=== PATIENT | female | born 1980 | race Caucasian/White ===

== ENCOUNTER 2019-04-05 16:35 | Emergency (ER) | payer OTHER ==
[2019-04-05 16:46] VITALS: TEMP 98.8; BMI 19.6
--- NOTE | 2019-04-05 17:17 | PDOC ---
*Physical Exam - Vital Signs Last Vital Signs Temp Pulse Resp BP Pulse Ox 98.8 F 118 H 18 121/70 96 04/05/19 16:45 04/05/19 16:45 04/05/19 16:45 04/05/19 16:45 04/05/19 16:45 ED Treatment Course - LABORATORY CBC & Chemistry Diagram: 04/05/19 17:56 04/05/19 17:56 Medical Decision Making - Medical Decision Making 04/05/19 17:16 Patient seen and evaluated with Dr. Ruelas 38 y/o female with seizure disorder presents with alcohol intoxication. Patient states she was at home when she decided to come to the hospital States she drinks 3 pints of vodka daily. Denies any fall, head trauma/LOC. Amenable to detox. 10 point ROS is negative including no chest pain/shortness of breath/abdominal pain/nausea/vomiting/diarrhea/constipation/dysuria/hematuria/numbness/tingling As per EMR patient left AMA from [facility] on 04/01/2017. Plan to observe until clinically sober + symptomatic treatment with IV hydration ,and d/c to [facility] pending bed availability. 04/05/19 17:51 Female alcohol detox bed available at [facility] Will obtain baseline labs, EKG, CXR, Urine Tox for [facility] admission *DC/Admit/Observation/Transfer Diagnosis at time of Disposition: Alcohol intoxication Qualifiers: Complication of substance-induced condition: uncomplicated Qualified Code(s): F10.920 - Alcohol use, unspecified with intoxication, uncomplicated - Referrals - Patient Instructions - Post Discharge Activity
[2019-04-05] MEDS ORDERED: FOLIC ACID INJECTION - 1 MG, THIAMINE HCL 100 MG, MULTIVIT INJECTION ADULT 10 ML in SOD... IVPB ONE (17:29)
--- NOTE | 2019-04-05 17:34 | PDOC ---
History of Present Illness - General Chief Complaint: Alcohol intoxication Stated Complaint: SUBSTANCE ABUSE Time Seen by Provider: 04/05/19 16:48 History Source: Patient Exam Limitations: No Limitations - History of Present Illness Initial Comments: 04/05/19 17:25 38 yo F pmh etoh withdrawal (DT, seizures) BIBEMS for alcohol intoxication. Pt called EMS after binge drinking for the weekend. Pt is a poor historian but believes she has had about 20 drinks. Last drink at 3pm. Pt states she normally drinks the same amount per day. Denies concominant drug use (e.g. barbituates, benzos). Denies head strike, LOC, f/c/n/v, chest pain, sob. Chart review shows the patient recently had an MRI (indication seizures) and was seen for etoh detox but signed out. PMH: as above Meds: see chart No significant surgical hx Amoxicillin allergy Does not smoke. Past History - Past Medical History Allergies/Adverse Reactions: Allergies Allergy/AdvReac Type Severity Reaction Status Date / Time amoxicillin Allergy Severe Verified 04/05/19 20:19 Home Medications: Ambulatory Orders Bupropion HCl [Bupropion Xl] 450 mg PO DAILY 04/01/19 Venlafaxine HCl ER [Effexor Xr -] 75 mg PO DAILY 04/01/19 COPD: No Other medical history: chr alcoholic - Suicide/Smoking/Psychosocial Hx Smoking History: Never smoked Hx Alcohol Use: Yes Drug/Substance Use Hx: No Review of Systems - Review of Systems Able to Perform ROS?: Yes Is the patient limited Monegasque proficient: No Constitutional: No: Chills, Fever HEENTM: No: Symptoms Reported, See HPI, Eye Pain, Blurred Vision, Tearing, Recent change in vision, Double Vision, Cataracts, Ear Pain, Ocular Prothesis, Ear Discharge, Nose Pain, Nose Congestion, Tinnitus, Nose Bleeding, Hearing Loss , Throat Pain, Throat Swelling, Mouth Pain, Dental Problems, Difficulty Swallowing, Mouth Swelling, Other Respiratory: No: Symptoms reported, See HPI, Cough, Orthopnea, Shortness of Breath, SOB with Exertion, SOB at Rest, Stridor, Wheezing, Productive cough, Hemoptysis, Other Cardiac (ROS): No: Symptoms Reported, See HPI, Chest Pain, Edema, Irregular Heart Rate, Lightheadedness, Palpitations, Syncope, Chest Tightness, Other ABD/GI: No: Symptoms Reported, See HPI, Abdominal Distended, Abd. Pain w/ defecation, Blood Streaked Bowels, Constipated, Diarrhea, Difficulty Swallowing , Nausea, Poor Appetite, Poor Fluid Intake, Rectal Bleeding, Vomiting, Indigestion, Abdominal cramping, Tarry Stools, Other : No: Symptoms Reported, See HPI, Burning, Dysuria, Discharge, Frequency, Flank Pain, Hematuria, Incontinence, Pain, Urgency, Testicular Mass, Testicular Swelling, Lesions, Testicular Pain, Other Neurological: No: Numbness, Paresthesia, Tingling, Weakness *Physical Exam - Vital Signs Last Vital Signs Temp Pulse Resp BP Pulse Ox 98.8 F 118 H 18 121/70 96 04/05/19 16:45 04/05/19 16:45 04/05/19 16:45 04/05/19 16:45 04/05/19 16:45 - Physical Exam Comments: 04/05/19 18:06 GEN: Resting comfortable in bed, NAD. Warm. HEENT: NC/AT, EOMI, PERRLA. Moist mucus membranes. CN II-XII intact. No obvious deformities, scalp hematomas, palpable fractures, or bruises. Normal voice. NEURO: Alert and oriented x3. Sensation grossly intact. 5/5 strength of UE and LE b/l. Normal gait, ambulates well. CV: S1/S2, RRR, no m/r/g LUNG: CTAB, no wheezes, crackles, rales, rhonchi. GI: soft, ndnt, +BS EXTREMITIES: There is a 10cm x 5 cm bruise on the lateral aspect of the left thigh. No obvious deformities of all extremities. ED Treatment Course - LABORATORY CBC & Chemistry Diagram: 04/05/19 17:56 04/05/19 17:56 Medical Decision Making - Medical Decision Making 04/05/19 17:37 38 yo F pmh alcohol withdrawal (seizures, DTs) BIBEMS for alcohol intoxication. Last drink was 2 hours before presentation. Patient is completely alert and oriented, neurologically intact. She denies head trauma and there are no signs of head trauma. There are no airway or breathing issues. Patient signed out of etoh detox recently but is amenable to re-admission. Acute alcohol intoxication - CBC, CMP, test - IV, banana bag - Urine tox - monitor - [facility] has a bed for patient; call before discharge. If no bed anymore, need to find new detox facility ([place]?) dispo: [facility] *DC/Admit/Observation/Transfer Diagnosis at time of Disposition: Alcohol intoxication Qualifiers: Complication of substance-induced condition: uncomplicated Qualified Code(s): F10.920 - Alcohol use, unspecified with intoxication, uncomplicated - Discharge Dispostion Disposition: TRANSFER ACUTE CARE/OTHER HOSP Condition at time of disposition: Good Decision to Admit order: No - Referrals - Patient Instructions Printed Discharge Instructions: DI for Alcohol Abuse Additional Instructions: You were assessed and treated in the Emergency Department. Please follow up with your Primary Care Physician and Detox specialist. Please return to the Emergency Department if you experience any of the following : - chest pain - shortness of breath and/or difficulty breathing - seizures, fainting, loss of consciousness, change in behavior, and/or change in mentation - severe headache - any signs or symptoms that concern you - Post Discharge Activity
[2019-04-05 18:12] LABS: BASO % 1.8 % (0-2.0); HEMATOCRIT 36.8 % (32.4-45.2); LYMPH % 47.5 % (8-40); MCHC 32.7 g/dl (32.0-36.0); MEAN CELL VOLUME 88.6 fl (80-96); MEAN PLT VOLUME 7.9 fl (7.5-11.1); MONO % 6.5 % (3.8-10.2); NEUT % 42.2 % (42.8-82.8); PLATELET COUNT 479 K/MM3 (134-434); RBC 4.15 M/mm3 (3.60-5.2); RDW 14.8 % (11.6-15.6); WHITE BLOOD COUNT 5.1 K/mm3 (4.0-10.0)
--- NOTE | 2019-04-05 18:17 | PDOC ---
Documentation entered by Corby Otto SCRIBE, acting as scribe for Aicha Mcgowan MD. Aicha Mcgowan MD: This documentation has been prepared by the Clarita gongora Nirvannie, SCRIBE, under my direction and personally reviewed by me in its entirety. I confirm that the documentation accurately reflects all work, treatment, procedures, and medical decision making performed by me. Attending Attestation - Resident Resident Name: Amado Ruelas - ED Attending Attestation I have performed the following: I have examined & evaluated the patient, The case was reviewed & discussed with the resident, I agree w/resident's findings & plan - HPI HPI: 04/05/19 17:57 The patient is a 38 year old female, with a significant past medical history of alcohol abuse (withdrawal seizures), who presents to the emergency department with, alcohol intoxication. Patient believes she had approximately 20 drinks this weekend (last drink 3pm). She denies recent chest pain or shortness of breath. Allergies: Amoxicillin. 04/05/19 18:15 cant remember last time she was sober, denies other drug use. states things are safe at home denies trauma. denies thoughts of self harm. - Physicial Exam PE: 04/05/19 18:15 awake alert lungs clear bilat heart rrr no mrg abd soft nt nd ext wwp. nuero alert oriented x 3. moves all four ext. speech clear. - Medical Decision Making 04/05/19 18:16 38 yo F with h/o etoh abuse last etoh today at 3 pm. pt willing to go to [facility] for detox. plan to transfer to [facility]. basic labs. po hydration CIWA precautions. 04/05/19 19:14 pt ekg normal. would like to go to [facility]. clinically sober at this point . called [facility] to discuss transfer. Heart Score/ECG Review #1 General ECG Interpretation: Sinus Rhythm, Normal Rate (108), Normal Intervals, No acute ischemic changes
[2019-04-05 18:52] LABS: ALBUMIN 3.9 g/dl (3.4-5.0); BILIRUBIN,TOTAL 0.3 mg/dL (0.2-1); CALCIUM 8.8 mg/dL (8.5-10.1); CREATININE 0.8 mg/dL (0.55-1.3); TOT PROT 7.7 g/dl (6.4-8.2)
[2019-04-05 19:22] VITALS: BP 144/70; PULSE 116
--- NOTE | 2019-04-06 09:25 | EKG ---
Test Reason : Blood Pressure : / mmHG Vent. Rate : 108 BPM Atrial Rate : 108 BPM P-R Int : 144 ms QRS Dur : 076 ms QT Int : 312 ms P-R-T Axes : 067 074 066 degrees QTc Int : 418 ms SINUS TACHYCARDIA CANNOT RULE OUT ANTERIOR INFARCT , AGE UNDETERMINED ABNORMAL ECG NO PREVIOUS ECGS AVAILABLE Confirmed by WOODY SHELBY MD ([id number]) on 04/06/2019 9:24:57 AM Referred By: Confirmed By:WOODY SHELBY MD
== END 2019-04-05 19:30 | disposition short-term general hospital (02) ==
LOC: JER 16:35
PROC: 3E033GC Introduction of Other Therapeutic Substance into Peripheral Vein, Percutaneous Approach (ICD-10-PCS; principal; 2019-04-05)
DX: F10.920 Alcohol use, unspecified with intoxication, uncomplicated (principal)
CPT/HCPCS: 36415; 71045-TC-FY; 80053; 84703; 85025; 93005; 93010; 96365; 99283-25; J7030

== ENCOUNTER 2019-04-05 20:07 | Inpatient (IN) | payer OTHER ==
[2019-04-05 20:25] VITALS: BMI 20.3
--- NOTE | 2019-04-05 21:34 | HP ---
CIWA Score Nausea/Vomitin-Mild Nausea/No Vomiting Muscle Tremors: 4-Moderate,w/Arms Extend Anxiety: 3 Agitation: 4-Moderately Restless Paroxysmal Sweats: 2 Orientation: 0-Oriented Tacttile Disturbances: 0-None Auditory Disturbances: 0-None Visual Disturbances: 0-None Headache: 2-Mild CIWA-Ar Total Score: 16 - Admission Criteria [facility]ASAS Guidelines: Admission for Medically Managed Detox: Requires at least one of the followin. CIWA greater than 12 2. Seizures within the past 24 hours 3. Delirium tremens within the past 24 hours 4. Hallucinations within the past 24 hours 5. Acute intervention needed for co occurring medical disorder 6. Acute intervention needed for co occurring psychiatric disorder 7. Severe withdrawal that cannot be handled at a lower level of care (continued vomiting, continued diarrhea, abnormal vital signs) requiring intravenous medication and/or fluids 8. Admission ROS [facility] Chief Complaint: Alcohol withdrawal symptoms Allergies/Adverse Reactions: Allergies Allergy/AdvReac Type Severity Reaction Status Date / Time amoxicillin Allergy Severe Verified 04/05/19 20:19 History of Present Illness: 33 years old female with a long history of alcohol dependence is seeking admission to detox. Patient has been in previous detox at [facility] and reports 7 years of sobriety. She has history of seizure and depression. She denies suicide attempt / suicidal ideation at this time. this her first admission to [facility] detox. Exam Limitations: No Limitations - Ebola screening Have you traveled outside of the country in the last 21 days: No (N) Have you had contact with anyone from an Ebola affected area: No Do you have a fever: No - Review of Systems Constitutional: Chills, Malaise EENT: reports: Nose Congestion Respiratory: reports: No Symptoms reported Cardiac: reports: No Symptoms Reported GI: reports: Poor Appetite, Poor Fluid Intake, Abdominal cramping : reports: No Symptoms Reported Musculoskeletal: reports: Back Pain Integumentary: reports: Dryness, Flushing Neuro: reports: Headache, Tremors Endocrine: reports: No Symptoms Reported Hematology: reports: No Symptoms Reported Psychiatric: reports: Mood/Affect Appropiate, Orientated x3, Anxious, Depressed Other Systems: Reviewed and Negative Patient History - Patient Medical History Hx Anemia: No Hx Asthma: No Hx Chronic Obstructive Pulmonary Disease (COPD): No Hx Cancer: No Hx Cardiac Disorders: No Hx Congestive Heart Failure: No Hx Hypertension: No Hx Hypercholesterolemia: No Hx Pacemaker: No HX Cerebrovascular Accident: No Hx Seizures: Yes (Not on medication) Hx Dementia: No Hx Diabetes: No Hx Gastrointestinal Disorders: No Hx Liver Disease: No Hx Genitourinary Disorders: No Hx Sexually Transmitted Disorders: No Hx Renal Disease (ESRD): No Hx Thyroid Disease: No Hx Human Immunodeficiency Virus (HIV): No (Neggative 2019) Hx Hepatitis C: No Hx Depression: Yes (Effexor, Bupriopion) Hx Suicide Attempt: No (Denies suicide attempt/ [id number] ideation at this time) Hx Bipolar Disorder: No Hx Schizophrenia: No - Patient Surgical History Past Surgical History: No - PPD History Previous Implant?: Yes Documented Results: Negative w/o proof Implanted On Prior [facility] Admission?: No PPD to be Administered?: Yes - Reproductive History Patient is a Female of Child Bearing Age (11 -55 yrs old): Yes Last Menstrual Period: 03/17/19 Patient : No - Smoking Cessation Smoking history: Never smoked Have you smoked in the past 12 months: No Hx Chewing Tobacco Use: No Initiated information on smoking cessation: No - Substance & Tx. History Hx Alcohol Use: Yes Hx Substance Use: No Substance Use Type: Alcohol Hx Substance Use Treatment: No - Substances abused Alcohol Substance route: Oral Frequency: Daily Amount used: 1 pint Age of first use: 14 Date of last use: 04/01/19 Family Disease History - Family Disease History Family Disease History: Other: Mother (Alcoholic) Admission Physical Exam [facility] - Vital Signs Vital Signs: Vital Signs - 24 hr 04/05/19 20:19 Temperature 98.6 F Pulse Rate 117 H Respiratory 20 Rate Blood Pressure 128/87 - Physical General Appearance: Yes: Moderate Distress, Anxious HEENTM: Yes: Within Normal Limits, Normal ENT Inspection, Normal Voice Respiratory: Yes: Normal Breath Sounds Neck: Yes: Supple Breast: Yes: Breast Exam Deferred Cardiology: Yes: Regular Rhythm, Regular Rate Abdominal: Yes: Normal Bowel Sounds Genitourinary: Yes: Within Normal Limits Back: Yes: Normal Inspection Musculoskeletal: Yes: Within Normal Limits Extremities: Yes: Normal Inspection Neurological: Yes: chain maker machine II-XII NML intact Integumentary: Yes: Warm Lymphatic: Yes: Within Normal Limits - Diagnostic (1) Alcohol dependence with uncomplicated withdrawal Current Visit: Yes Status: Acute (2) Depression Current Visit: Yes Status: Acute Qualifiers: Depression Type: unspecified Qualified Code(s): F32.9 - Major depressive disorder, single episode, unspecified Cleared for Admission [facility] - Detox or Rehab [facility] Level of Care: Medically Managed Detox Regimen/Protocol: Librium Breathalyzer - Breathalyzer Breathalyzer: 0.105 Urine Drug Screen - Test Device Lot number: [id number] Expiration date: 01/13/21 - Control Is test valid?: Yes - Results Drug screen NEGATIVE: No Urine drug screen results: BZO-Benzodiazepines Inpatient Rehab Admission - Rehab Decision to Admit Inpatient rehab admission?: No
[2019-04-05] MEDS ORDERED: MAG HYDROX/AL HYDROX/SIMETH 30 ML UNIT-DOSE CUP PO PRN (21:43)
[2019-04-05] MEDS ORDERED: IBUPROFEN 400 MG TABLET (FP) PO PRN (21:43)
[2019-04-05] MEDS ORDERED: hydrOXYzine PAMOATE 25 MG CAPSULE (FP) PO PRN (21:43)
[2019-04-05] MEDS ORDERED: ACETAMINOPHEN 325 MG TABLET (FP) PO PRN ×2 (21:43)
[2019-04-05] MEDS ORDERED: MENTHOL/PHENOL 1 EACH UD MM PRN (21:43)
[2019-04-05] MEDS ORDERED: MAGNESIUM CITRATE 300 ML BOTTLE PO PRN (21:43)
[2019-04-05] MEDS ORDERED: BISMUTH SUBSALICYLATE 524 MG/30 ML UD PO PRN (21:43)
[2019-04-05] MEDS ORDERED: MELATONIN 5 MG TABLETS PO PRN (21:43)
[2019-04-05] MEDS ORDERED: MAGNESIUM HYDROX 2400MG/30ML ORAL SUSPENSION 30 ML CUP PO PRN (21:43)
[2019-04-05] MEDS: THIAMINE HCL 100 MG TABLET (FP) PO SCH (23:24)
[2019-04-05] MEDS: chlordiazePOXIDE HCL 25 MG CAPSULE PO SCH (23:24)
[2019-04-06] MEDS: chlordiazePOXIDE HCL 25 MG CAPSULE PO PRN ×3 (01:23→19:41)
[2019-04-06] MEDS: chlordiazePOXIDE HCL 25 MG CAPSULE PO SCH ×4 (05:38→22:24)
--- NOTE | 2019-04-06 09:25 | EKG ---
Test Reason : Blood Pressure : / mmHG Vent. Rate : 097 BPM Atrial Rate : 097 BPM P-R Int : 142 ms QRS Dur : 074 ms QT Int : 322 ms P-R-T Axes : 069 073 071 degrees QTc Int : 408 ms NORMAL SINUS RHYTHM NORMAL ECG NO PREVIOUS ECGS AVAILABLE Confirmed by WOODY SHELBY MD ([id number]) on 04/06/2019 9:25:22 AM Referred By: TAMMY LEONG Confirmed By:WOODY SHELBY MD
[2019-04-06] MEDS: PRENATAL VITAMINS W/ FOLIC ACID TABLET (FP) PO SCH (10:17)
--- NOTE | 2019-04-06 10:49 | CONSULT ---
[facility] Psychiatric Consult - Data Date of interview: 04/06/19 Admission source: [facility] ED Identifying data: MS Donald is a 38 years old single female, unemployed with no source of income, homeless seeking detox treatment for alcohol Substance Abuse History: Reports history of alcohol use. [facility]er to [facility] counselor's summary for further information Medical History: Significant for history one seizure episode. Patient claims that it was due to dehydration Psychiatric History: Reports that her first psychiatric contact was 10 years ago when she saw a private psychatrist in [place] who started her on Prozac for depression. Reports that she has been the psychiatrist regularly. She is currently precribed Wellbutrin XL 450 mg/day and Effexor XR 75 mg/day. Told copywriter that she last took medications a week ago. Denies previous psychiatric hospitalization or suicidal attempt. At present, reports feeling depressed, anxious and sleeping poorly Physical/Sexual Abuse/Trauma History: Denies history of emotional, physical or sexual abuse as well as DV relationship Additional Comment: Reports history of one previous arrest on charges of DWI Mental Status Exam - Mental Status Exam Alert and Oriented to: Time, Place, Person Cognitive Function: Fair Patient Appearance: Well Groomed Mood: Depressed, Anxious Patient Behavior: Cooperative Speech Pattern: Clear Voice Loudness: Normal Thought Process: Intact, Goal Oriented Thought Disorder: Not Present Hallucinations: Denies Suicidal Ideation: Denies Homicidal Ideation: Denies Insight/Judgement: Poor Sleep: Poorly Appetite: Fair Muscle strength/Tone: Normal Gait/Station: Normal Psychiatric Findings - Problem List ([place] 1, 2,3) (1) MDD (major depressive disorder) Current Visit: Yes Status: Chronic (2) Alcohol-induced mood disorder Current Visit: Yes Status: Acute (3) Alcohol-induced sleep disorder Current Visit: Yes Status: Acute (4) Alcohol dependence with uncomplicated withdrawal Current Visit: Yes Status: Acute (5) History of seizure Current Visit: Yes Status: Resolved - Initial Treatment Plan Initial Treatment Plan: 1) Resume Wellbutrin XL 450 mg po daily and Effexor XR 75 mg po daily. 2) Patient educated about relationship between medication especially Wellbutrin and Seizure and he was invited to initiate a conversation with her health care provider about that. 3)Continue inpatient detoxification
--- NOTE | 2019-04-06 11:22 | PN ---
S CIWA - CIWA Score Nausea/Vomitin-No Nausea/No Vomiting Muscle Tremors: 3 Anxiety: 3 Agitation: 3 Paroxysmal Sweats: 3 Orientation: 0-Oriented Tacttile Disturbances: 0-None Auditory Disturbances: 0-None Visual Disturbances: 0-None Headache: 0-None Present CIWA-Ar Total Score: 12 BHS Progress Note (SOAP) Subjective: sweats shakes interrupted sleep body aches anxiety Objective: 04/06/19 11:20 Vital Signs Temperature 98.2 F 04/06/19 09:26 Pulse Rate 107 H 04/06/19 11:00 Respiratory Rate 16 04/06/19 09:26 Blood Pressure 102/58 L 04/06/19 09:26 O2 Sat by Pulse Oximetry (%) Laboratory Tests 04/05/19 20:49 POC Urine HCG, Qual Negative labs pending aaox3 ambulating no acute distress Assessment: 04/06/19 11:20 withdrawal sx Plan: continue with detox increase fluids pending labs
[2019-04-06] MEDS: VENLAFAXINE HCL 75 MG E.R. CAPSULES (FP) PO SCH (11:43)
[2019-04-06 12:04] LABS: HEMATOCRIT 34.9 % (32.4-45.2); HEMOGLOBIN 11.3 GM/dL (10.7-15.3); MCH 29.3 pg (25.7-33.7); MCHC 32.5 g/dl (32.0-36.0); MEAN CELL VOLUME 89.9 fl (80-96); MEAN PLT VOLUME 8.5 fl (7.5-11.1); PLATELET COUNT 377 K/MM3 (134-434); RBC 3.88 M/mm3 (3.60-5.2); RDW 14.4 % (11.6-15.6); WHITE BLOOD COUNT 7.4 K/mm3 (4.0-10.0)
[2019-04-06 12:10] LABS: ALBUMIN 3.3 g/dl (3.4-5.0); BILIRUBIN,TOTAL 0.3 mg/dL (0.2-1); BLOOD UREA NITROGEN 14.5 mg/dL (7-18); CALCIUM 8.4 mg/dL (8.5-10.1); CREATININE 0.7 mg/dL (0.55-1.3); POTASSIUM 4.1 mmol/L (3.5-5.1); TOT PROT 6.3 g/dl (6.4-8.2)
[2019-04-06] MEDS: METHOCARBAMOL 500 MG TABLET PO PRN (22:24)
[2019-04-06] MEDS: THIAMINE HCL 100 MG TABLET (FP) PO SCH (22:24)
[2019-04-07] MEDS: chlordiazePOXIDE HCL 25 MG CAPSULE PO SCH ×4 (05:55→22:23)
[2019-04-07] MEDS: PRENATAL VITAMINS W/ FOLIC ACID TABLET (FP) PO SCH (10:23)
[2019-04-07] MEDS: VENLAFAXINE HCL 75 MG E.R. CAPSULES (FP) PO SCH (10:23)
--- NOTE | 2019-04-07 11:45 | PN ---
[facility] CIWA - CIWA Score Nausea/Vomitin-No Nausea/No Vomiting Muscle Tremors: 3 Anxiety: 3 Agitation: 3 Paroxysmal Sweats: 2 Orientation: 0-Oriented Tacttile Disturbances: 0-None Auditory Disturbances: 0-None Visual Disturbances: 0-None Headache: 0-None Present CIWA-Ar Total Score: 11 S Progress Note (SOAP) Subjective: sweats anxiety body aches interrupted sleep Objective: 04/07/19 11:44 Vital Signs Temperature 97.7 F 04/07/19 07:21 Pulse Rate 65 04/07/19 07:21 Respiratory Rate 16 04/07/19 07:21 Blood Pressure 106/68 04/07/19 07:21 O2 Sat by Pulse Oximetry (%) Laboratory Tests 04/05/19 04/06/19 04/06/19 20:49 07:00 07:00 WBC 7.4 RBC 3.88 Hgb 11.3 Hct 34.9 MCV 89.9 MCH 29.3 MCHC 32.5 RDW 14.4 Plt Count 377 D MPV 8.5 Sodium 139 Potassium 4.1 Chloride 107 Carbon Dioxide 27 Anion Gap 5 L BUN 14.5 Creatinine 0.7 Est GFR (CKD-EPI)AfAm 128.28 Est GFR (CKD-EPI)NonAf 110.69 Random Glucose 89 Calcium 8.4 L Total Bilirubin 0.3 AST 26 ALT 32 Alkaline Phosphatase 73 Total Protein 6.3 L Albumin 3.3 L POC Urine HCG, Qual Negative RPR Titer 04/06/19 07:00 WBC RBC Hgb Hct MCV MCH MCHC RDW Plt Count MPV Sodium Potassium Chloride Carbon Dioxide Anion Gap BUN Creatinine Est GFR (CKD-EPI)AfAm Est GFR (CKD-EPI)NonAf Random Glucose Calcium Total Bilirubin AST ALT Alkaline Phosphatase Total Protein Albumin POC Urine HCG, Qual RPR Titer Nonreactive aaox3 ambulating no acute distress Assessment: 04/07/19 11:44 withdrawal sx Plan: continue detox increase fluids
[2019-04-07] MEDS: chlordiazePOXIDE HCL 25 MG CAPSULE PO PRN (12:42)
[2019-04-07] MEDS: THIAMINE HCL 100 MG TABLET (FP) PO SCH (22:23)
[2019-04-08] MEDS ORDERED: chlordiazePOXIDE HCL 10 MG CAPSULE PO PRN
[2019-04-08] MEDS: chlordiazePOXIDE HCL 10 MG CAPSULE PO SCH ×4 (05:17→22:39)
[2019-04-08] MEDS: PRENATAL VITAMINS W/ FOLIC ACID TABLET (FP) PO SCH (10:18)
[2019-04-08] MEDS: VENLAFAXINE HCL 75 MG E.R. CAPSULES (FP) PO SCH (10:18)
--- NOTE | 2019-04-08 12:46 | PN ---
[facility] CIWA - CIWA Score Nausea/Vomitin-No Nausea/No Vomiting Muscle Tremors: 2 Anxiety: 2 Agitation: 1-Slight > Activity Paroxysmal Sweats: 2 Orientation: 0-Oriented Tacttile Disturbances: 0-None Auditory Disturbances: 0-None Visual Disturbances: 0-None Headache: 0-None Present CIWA-Ar Total Score: 7 BHS Progress Note (SOAP) Subjective: sweats tired Objective: 04/08/19 12:45 Vital Signs Temperature 97.7 F 04/08/19 09:24 Pulse Rate 80 04/08/19 09:24 Respiratory Rate 18 04/08/19 09:24 Blood Pressure 103/60 04/08/19 09:24 O2 Sat by Pulse Oximetry (%) aaox3 ambulating no acute distress Assessment: 04/08/19 12:46 mild withdrawal sx Plan: continue detox increase fluids
[2019-04-08] MEDS: THIAMINE HCL 100 MG TABLET (FP) PO SCH (22:38)
[2019-04-09] MEDS: chlordiazePOXIDE HCL 10 MG CAPSULE PO SCH ×2 (05:32→17:23)
[2019-04-09] MEDS: PRENATAL VITAMINS W/ FOLIC ACID TABLET (FP) PO SCH (10:10)
[2019-04-09] MEDS: VENLAFAXINE HCL 75 MG E.R. CAPSULES (FP) PO SCH (10:11)
--- NOTE | 2019-04-09 11:23 | PN ---
S CIWA - CIWA Score Nausea/Vomitin-No Nausea/No Vomiting Muscle Tremors: 1-None Visible, but [place] Anxiety: 1-Mildly Anxious Agitation: 1-Slight > Activity Paroxysmal Sweats: No Perspiration Orientation: 0-Oriented Tacttile Disturbances: 0-None Auditory Disturbances: 0-None Visual Disturbances: 0-None Headache: 0-None Present CIWA-Ar Total Score: 3 BHS Progress Note (SOAP) Subjective: little anxiety Objective: 04/09/19 11:22 Vital Signs Temperature 97.9 F 04/09/19 09:35 Pulse Rate 86 04/09/19 09:35 Respiratory Rate 18 04/09/19 09:35 Blood Pressure 114/69 04/09/19 09:35 O2 Sat by Pulse Oximetry (%) aaox3 ambulating no acute distress Assessment: 04/09/19 11:23 mild withdrawal sx Plan: continue detox d/c in am
[2019-04-09] MEDS: THIAMINE HCL 100 MG TABLET (FP) PO SCH (22:14)
[2019-04-10] MEDS ORDERED: chlordiazePOXIDE HCL 10 MG CAPSULE PO ONE (05:00)
--- NOTE | 2019-04-10 09:58 | DS ---
[facility] Detox Discharge Summary Admission Date: 04/05/19 Discharge Date: 04/10/19 - History Present History: Alcohol Dependence - Physical Exam Results Vital Signs: Vital Signs Temperature 97.1 F L 04/10/19 06:22 Pulse Rate 72 04/10/19 06:22 Respiratory Rate 16 04/10/19 06:22 Blood Pressure 101/58 L 04/10/19 06:22 O2 Sat by Pulse Oximetry (%) Pertinent Admission Physical Exam Findings: pt arrived in withdrawals Laboratory Tests 04/05/19 04/06/19 04/06/19 20:49 07:00 07:00 WBC 7.4 RBC 3.88 Hgb 11.3 Hct 34.9 MCV 89.9 MCH 29.3 MCHC 32.5 RDW 14.4 Plt Count 377 D MPV 8.5 Sodium 139 Potassium 4.1 Chloride 107 Carbon Dioxide 27 Anion Gap 5 L BUN 14.5 Creatinine 0.7 Est GFR (CKD-EPI)AfAm 128.28 Est GFR (CKD-EPI)NonAf 110.69 Random Glucose 89 Calcium 8.4 L Total Bilirubin 0.3 AST 26 ALT 32 Alkaline Phosphatase 73 Total Protein 6.3 L Albumin 3.3 L POC Urine HCG, Qual Negative RPR Titer TB (QFT) Incubation TB Test (QFT) Nil TB Test (QFT) Mitogen TB Test (QFT) Antigen TB Test (QFT) TB Positive Criteria 04/06/19 04/06/19 07:00 07:00 WBC RBC Hgb Hct MCV MCH MCHC RDW Plt Count MPV Sodium Potassium Chloride Carbon Dioxide Anion Gap BUN Creatinine Est GFR (CKD-EPI)AfAm Est GFR (CKD-EPI)NonAf Random Glucose Calcium Total Bilirubin AST ALT Alkaline Phosphatase Total Protein Albumin POC Urine HCG, Qual RPR Titer Nonreactive TB (QFT) Incubation TB Test (QFT) Nil 0.02 TB Test (QFT) Mitogen >10.00 TB Test (QFT) Antigen 0.02 TB Test (QFT) Negative TB Positive Criteria today pt is aaox3 ambulating no acute distress no s/s of withdrawals - Treatment Hospital Course: Detox Protocol Followed, Detoxed Safely, Responded well, Discharged Condition Good, Rehab Referral Accepted Patient has Accepted a Rehab Referral to: pt referred to [facility] inpatient rehab - Medication Discharge Medications: Ambulatory Orders Bupropion HCl [Bupropion Xl] 450 mg PO DAILY 04/01/19 Venlafaxine HCl ER [Effexor Xr -] 75 mg PO DAILY 04/01/19 - Diagnosis (1) Alcohol dependence with uncomplicated withdrawal Current Visit: Yes Status: Chronic (2) Alcohol-induced mood disorder Current Visit: Yes Status: Acute (3) Alcohol-induced sleep disorder Current Visit: Yes Status: Acute (4) Depression Current Visit: Yes Status: Acute Qualifiers: Depression Type: unspecified Qualified Code(s): F32.9 - Major depressive disorder, single episode, unspecified (5) MDD (major depressive disorder) Current Visit: Yes Status: Chronic (6) History of seizure Current Visit: Yes Status: Resolved - AMA Did Patient Leave Against Medical Advice: No (referred to [facility] )
[2019-04-10 10:01] VITALS: BP 106/61; PULSE 95; TEMP 96.9
[2019-04-10] MEDS: METHOCARBAMOL 500 MG TABLET PO PRN (10:13)
[2019-04-10] MEDS: PRENATAL VITAMINS W/ FOLIC ACID TABLET (FP) PO SCH (10:13)
[2019-04-10] MEDS: VENLAFAXINE HCL 75 MG E.R. CAPSULES (FP) PO SCH (10:13)
== END 2019-04-10 11:00 | disposition home or self-care (01) | DRG 775 ==
LOC: YASAS 20:07 → Y6N 21:52
PROVIDERS: ADMIT Surgery; ATTEND Surgery
PROC: HZ2ZZZZ Detoxification Services for Substance Abuse Treatment (ICD-10-PCS; principal; 2019-04-05)
DX: F10.230 Alcohol dependence with withdrawal, uncomplicated (principal); F10.24 Alcohol dependence with alcohol-induced mood disorder; F10.282 Alcohol dependence with alcohol-induced sleep disorder; F33.9 Major depressive disorder, recurrent, unspecified; Z86.69 Personal history of other diseases of the nervous system and sense organs
CPT/HCPCS: 36415; 80053; 81025; 85027; 86480; 86593; 93005; 93010

== ENCOUNTER 2019-08-26 12:40 | Inpatient (IN) | payer OTHER ==
--- NOTE | 2019-08-26 13:15 | HP ---
CIWA Score - Admission Criteria OASAS Guidelines: Admission for Medically Managed Detox: Requires at least one of the followin. CIWA greater than 12 2. Seizures within the past 24 hours 3. Delirium tremens within the past 24 hours 4. Hallucinations within the past 24 hours 5. Acute intervention needed for co occurring medical disorder 6. Acute intervention needed for co occurring psychiatric disorder 7. Severe withdrawal that cannot be handled at a lower level of care (continued vomiting, continued diarrhea, abnormal vital signs) requiring intravenous medication and/or fluids 8. Admitting History and Physical - Admission History of Present Illness: Pt is a 39 yo F with PMHx of alcohol use disorder and prior delirium tremens, depression, found outside [facility] after a fall. Pt was found on floor, per pt she said she fell on someone else's vomit on the floor. Pt took 1 pint of vodka at 8am today and was coming in for detox at [facility]. No bleeding from any orifice, pt alert and responsive but with sustained swelling on L frontal area and back area. Pt reports falling yesterday in [facility] residential services in [place], where she sustained a bulge on the L frontal area and the second bulge posteriorly was sustained today. She has headache with pain localized to the front bump 2/10 and back 4/10. No seizures noted, not tongue biting, no fecal or urinary incontinence. As fall was unwitnessed and pt has obvious head trauma, she will be sent to [facility] for CT head. PE: CA- 107 BP-105/68 RR-16 General: Alcohol on breath, awake, initially on floor had to be assisted to stand up, no obvious bleeding from any orifice, no vomit on face or mouth, but vomit on clothes and floor HEENT: Golf ball like swelling L frontal/temporal area, fluctuant, non bleeding , tender, and R posterior swelling golfball size, fluctuant, non bleeding, no obvious bleeding tender,PERRL, nose ring in place, Resp: CTA b/l Cards: S1, S2, tachycardia Abdomen: Soft, non tender [employer]: AAOx 3, Normal strength 5/5 globally, normal tone and reflexes, no tremors Plan: Transfer to [facility] ED for CT head and further eval For detox at [facility] when discharged from [facility] History Source: Patient - Past Medical History ...LMP: 03/17/19 - Smoking History Smoking history: Never smoked Have you smoked in the past 12 months: No - Alcohol/Substance Use Hx Alcohol Use: Yes Admission [facility] Allergies/Adverse Reactions: Allergies Allergy/AdvReac Type Severity Reaction Status Date / Time amoxicillin Allergy Severe Verified 04/05/19 20:19 - Ebola screening Have you traveled outside of the country in the last 21 days: No Have you had contact with anyone from an Ebola affected area: No Patient History - Patient Medical History Hx Anemia: No Hx Asthma: No Hx Chronic Obstructive Pulmonary Disease (COPD): No Hx Cancer: No Hx Cardiac Disorders: No Hx Congestive Heart Failure: No Hx Hypertension: No Hx Hypercholesterolemia: No Hx Pacemaker: No HX Cerebrovascular Accident: No Hx Seizures: Yes (Not on medication) Hx Dementia: No Hx Diabetes: No Hx Gastrointestinal Disorders: No Hx Liver Disease: No Hx Genitourinary Disorders: No Hx Sexually Transmitted Disorders: No Hx Renal Disease (ESRD): No Hx Thyroid Disease: No Hx Human Immunodeficiency Virus (HIV): No (Neggative 2019) Hx Hepatitis C: No Hx Depression: Yes (Effexor, Bupriopion) Hx Suicide Attempt: No (Denies suicide attempt/ [id number] ideation at this time) Hx Bipolar Disorder: No Hx Schizophrenia: No - Patient Surgical History Past Surgical History: No Hx Neurologic Surgery: No Hx Cataract Extraction: No Hx Cardiac Surgery: No Hx Lung Surgery: No Hx Breast Surgery: No Hx Breast Biopsy: No Hx Abdominal Surgery: No Hx Appendectomy: No Hx Cholecystectomy: No Hx Genitourinary Surgery: No Hx Section: No Hx Orthopedic Surgery: No Anesthesia Reaction: No - Reproductive History Last Menstrual Period: 03/17/19 - Smoking Cessation Smoking history: Never smoked Have you smoked in the past 12 months: No Hx Chewing Tobacco Use: No - Substances abused Alcohol Substance route: Oral Frequency: Daily Amount used: 1 pint Age of first use: 14 Date of last use: 04/01/19 Screened but not Admitted - Documentation of Visit Level of Care Recommended at this Time: ER Evaluation/Care (S/p fall for fall protocol 1, requiring Head CT in [facility], pt will be evaluated for detox after d/ c from [facility]) Breathalyzer - Breathalyzer Breathalyzer: 0.105 Urine Drug Screen - Test Device Lot number: [id number] Expiration date: 01/13/21 - Control Is test valid?: Yes - Results Drug screen NEGATIVE: No Urine drug screen results: BZO-Benzodiazepines Inpatient Rehab Admission - Rehab Decision to Admit Inpatient rehab admission?: No
--- NOTE | 2019-08-26 13:52 | FALL ---
Fall Exam - Event Witnessed fall: No Location of Fall: [facility] Fall from: While ambulating - Pre-Fall Mental Status: Alert (Unclear) Current Medications: 08/26/19 13:52 Unknown - Post-Fall Patient Outcome: Abrasion/Bruise (Swelling on L forehead and R occiput) Treatment: Ice Pack LOC Post-Fall: Alert, Oriented Identify factors for HIGH RISK for Head Injury: Known to have hit head
[2019-08-26 17:51] VITALS: BMI 19.5
--- NOTE | 2019-08-26 19:12 | HP ---
CIWA Score Nausea/Vomitin-No Nausea/No Vomiting Muscle Tremors: 4-Moderate,w/Arms Extend Anxiety: 4-Mod. Anxious/Guarded Agitation: 4-Moderately Restless Paroxysmal Sweats: 3 Orientation: 0-Oriented Tacttile Disturbances: 0-None Auditory Disturbances: 0-None Visual Disturbances: 3-Moderate Sensitivity (to light) Headache: 2-Mild CIWA-Ar Total Score: 20 - Admission Criteria OASAS Guidelines: Admission for Medically Managed Detox: Requires at least one of the followin. CIWA greater than 12 2. Seizures within the past 24 hours 3. Delirium tremens within the past 24 hours 4. Hallucinations within the past 24 hours 5. Acute intervention needed for co occurring medical disorder 6. Acute intervention needed for co occurring psychiatric disorder 7. Severe withdrawal that cannot be handled at a lower level of care (continued vomiting, continued diarrhea, abnormal vital signs) requiring intravenous medication and/or fluids 8. Patient presents the following: CIWA greater than 12 Admission Criteria Met: Admission criteria met Admitting History and Physical - Past Medical History ...LMP: 03/17/19 - Smoking History Smoking history: Never smoked Have you smoked in the past 12 months: No - Alcohol/Substance Use Hx Alcohol Use: Yes Admission ROS [facility] Chief Complaint: SEEKING ALCOHOL DETOX Allergies/Adverse Reactions: Allergies Allergy/AdvReac Type Severity Reaction Status Date / Time amoxicillin Allergy Severe Verified 08/26/19 14:00 History of Present Illness: HERE FOR ALCOHOL DETOX. CLIENT IS SELF REFERRED. KNOWN TO PROGRAM . LAST HERE 2018. CLIENT REPORTS RELAPSING 3 DAYS AGO. SHE REPORTS DRINKING ABOUT 2 PINTS OF VODKA TODAY. LAST INTAKE TODAY, 1PINT. SHE PRESENTS WITH WITHDRAWAL SX'S. SHE WAS ALSO EVALUATED AT [facility] AFTER A SLIP AND FALL WITH CLOSED HEAD INJURY. CLIENT REPORTS FALLING BACKWARDS AND HITTING BACK OF HER HEAD. CT SCAN OF HEAD IS NEGATIVE CLIENT CLEAR FOR DETOX ADMISSION. 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 MOST RECENT CLEAN TIME 5 MONTHS. H[facility]ELESS-[facility], UNEMPLOYED, DENIES LEGALS TB GOLD 03/2019 NEG CXR 03/2019 NEG FOR PATHOLOGY EKG NOTED 03/2019 Exam Limitations: No Limitations - Ebola screening Have you traveled outside of the country in the last 21 days: No Have you had contact with anyone from an Ebola affected area: No Have you been sick,other than usual withdrawal symptoms: No Do you have a fever: No - Review of Systems Constitutional: Chills, Night Sweats EENT: reports: Blurred Vision (CHRONIC) Respiratory: reports: No Symptoms reported Cardiac: reports: No Symptoms Reported GI: reports: Poor Fluid Intake : reports: No Symptoms Reported Musculoskeletal: reports: No Symptoms Reported Integumentary: reports: Flushing Neuro: reports: Headache, Tremors, Dizziness Endocrine: reports: No Symptoms Reported Hematology: reports: No Symptoms Reported Psychiatric: reports: Orientated x3, Anxious, Depressed (DENIES SI/HI) Other Systems: Reviewed and Negative Patient History - Patient Medical History Hx Anemia: No Hx Asthma: No Hx Chronic Obstructive Pulmonary Disease (COPD): No Hx Cancer: No Hx Cardiac Disorders: No Hx Congestive Heart Failure: No Hx Hypertension: No Hx Hypercholesterolemia: No Hx Pacemaker: No HX Cerebrovascular Accident: No Hx Seizures: No Hx Dementia: No Hx Diabetes: No Hx Gastrointestinal Disorders: No Hx Liver Disease: No Hx Genitourinary Disorders: No Hx Sexually Transmitted Disorders: No Hx Renal Disease (ESRD): No Hx Thyroid Disease: No Hx Human Immunodeficiency Virus (HIV): No Hx Hepatitis C: No Hx Depression: Yes (Effexor, Bupriopion Has not taken in a couple of days due to binge drinking) Hx Suicide Attempt: No (Denies suicide attempt/ [id number] ideation at this time) Hx Bipolar Disorder: No Hx Schizophrenia: No - Patient Surgical History Past Surgical History: No Hx Neurologic Surgery: No Hx Cataract Extraction: No Hx Cardiac Surgery: No Hx Lung Surgery: No Hx Breast Surgery: No Hx Breast Biopsy: No Hx Abdominal Surgery: No Hx Appendectomy: No Hx Cholecystectomy: No Hx Genitourinary Surgery: No Hx Section: No Hx Orthopedic Surgery: No Anesthesia Reaction: No - PPD History Previous Implant?: No Implanted On Prior R Admission?: No Date: 04/06/19 Results: tb gold neg PPD to be Administered?: No - Reproductive History Patient is a Female of Child Bearing Age (11 -55 yrs old): Yes Last Menstrual Period: 08/12/19 LMP comment: reg Patient : No (neg uhcg) - Smoking Cessation Smoking history: Never smoked Have you smoked in the past 12 months: No Hx Chewing Tobacco Use: No Initiated information on smoking cessation: No - Substance & Tx. History Hx Alcohol Use: Yes Hx Substance Use: No Substance Use Type: Alcohol Hx Substance Use Treatment: Yes ([facility]) - Substances abused Alcohol Substance route: Oral Frequency: Daily Amount used: 1 pint OF VODKA Age of first use: 16 Date of last use: 08/25/19 Admission Physical Exam S - Vital Signs Vital Signs: Vital Signs - 24 hr 08/26/19 08/26/19 08/26/19 01:00 17:40 17:45 Temperature 97.8 F 98.4 F 98.4 F Pulse Rate 107 H 98 H 98 H Respiratory 16 18 18 Rate Blood Pressure 105/68 124/78 124/78 08/26/19 18:18 Temperature 98.4 F Pulse Rate 98 H Respiratory 18 Rate Blood Pressure 124/78 - Physical General Appearance: Yes: Moderate Distress, Tremorous, Sweating (flushed), Anxious HEENTM: Yes: EOMI, Normocephalic, Normal Voice, ROBERTA, Pharynx Normal Respiratory: Yes: Chest Non-Tender, Lungs Clear, Normal Breath Sounds, No Respiratory Distress, No Accessory Muscle Use Neck: Yes: No masses,lesions,Nodules, Supple, Trachea in good position Breast: Yes: Breasts Symetrical Cardiology: Yes: Regular Rhythm, Regular Rate, S1, S2 Abdominal: Yes: Normal Bowel Sounds, Non Tender, Soft Genitourinary: Yes: Within Normal Limits Back: Yes: Normal Inspection Musculoskeletal: Yes: full range of Motion, Gait Steady Extremities: Yes: Normal Range of Motion, Non-Tender, Tremors Neurological: Yes: Fully Oriented, Alert, Motor Strength 5/5 Integumentary: Yes: Dry, Warm, Other (flushed) Lymphatic: Yes: Within Normal Limits - Diagnostic (1) Alcohol-induced mood disorder Current Visit: Yes Status: Acute (2) Depression Current Visit: Yes Status: Chronic Qualifiers: Depression Type: unspecified Qualified Code(s): F32.9 - Major depressive disorder, single episode, unspecified (3) Fall Current Visit: Yes Status: Acute Qualifiers: Encounter type: subsequent encounter Qualified Code(s): W19.XXXD - Unspecified fall, subsequent encounter (4) Alcohol dependence with uncomplicated withdrawal Current Visit: Yes Status: Acute (5) Living in retirement Current Visit: Yes Status: Acute Cleared for Admission [facility] - Detox or Rehab [facility] Level of Care: Medically Managed (ativan) Claeared for Rehab Admission: No Breathalyzer - Breathalyzer Breathalyzer: 0.119 Urine Drug Screen - Test Device Lot number: [id number] Expiration date: 04/15/21 - Control Is test valid?: Yes - Results Drug screen NEGATIVE: Yes Urine drug screen results: BZO-Benzodiazepines Inpatient Rehab Admission - Rehab Decision to Admit Inpatient rehab admission?: No
[2019-08-26] MEDS ORDERED: DICYCLOMINE HCL 10 MG CAPSULE PO PRN (19:18)
[2019-08-26] MEDS ORDERED: MELATONIN 5 MG TABLETS PO PRN (19:18)
[2019-08-26] MEDS ORDERED: LORazepam 1 MG TABLET PO PRN (19:18)
[2019-08-26] MEDS ORDERED: MENTHOL/PHENOL 1 EACH UD MM PRN (19:18)
[2019-08-26] MEDS ORDERED: ONDANSETRON *ODT* 4 MG TABLET SL PRN (19:18)
[2019-08-26] MEDS ORDERED: METHOCARBAMOL 500 MG TABLET PO PRN (19:18)
[2019-08-26] MEDS ORDERED: ACETAMINOPHEN 325 MG TABLET (FP) PO PRN ×2 (19:18)
[2019-08-26] MEDS ORDERED: guaiFENesin 200 MG/10 ML 10 ML UNIT-DOSE CUPS PO PRN (19:18)
[2019-08-26] MEDS ORDERED: MAG HYDROX/AL HYDROX/SIMETH 30 ML UNIT-DOSE CUP PO PRN (19:18)
[2019-08-26] MEDS ORDERED: BISMUTH SUBSALICYLATE 524 MG/30 ML UD PO PRN (19:18)
[2019-08-26] MEDS ORDERED: MAGNESIUM CITRATE 300 ML BOTTLE PO PRN (19:18)
[2019-08-26] MEDS ORDERED: hydrOXYzine PAMOATE 25 MG CAPSULE (FP) PO PRN (19:18)
[2019-08-26] MEDS ORDERED: IBUPROFEN 400 MG TABLET (FP) PO PRN (19:18)
[2019-08-26] MEDS ORDERED: MAGNESIUM HYDROX 2400MG/30ML ORAL SUSPENSION 30 ML CUP PO PRN (19:18)
[2019-08-26] MEDS ORDERED: P-EPHED 60MG/TRIPROLIDI 2.5MG TABLET PO PRN (19:18)
[2019-08-26] MEDS: LORazepam 2 MG TABLET PO SCH (22:21)
[2019-08-26] MEDS: THIAMINE HCL 100 MG TABLET (FP) PO SCH (22:21)
[2019-08-27] MEDS: LORazepam 2 MG TABLET PO SCH ×4 (06:39→22:13)
--- NOTE | 2019-08-27 09:13 | CONSULT ---
[facility] Psychiatric Consult - Data Date of interview: 08/27/19 Admission source: Self-referred Identifying data: MS Donald is a 39 years old single female, unemployed with no source of income, homeless seeking detox treatment for alcohol Substance Abuse History: Reports history of alcohol use. Refer to [facility] counselor's summary for further information Medical History: Significant for history one seizure episode. Patient claims that it was due to dehydration Psychiatric History: Patient is known to field underwriter from a recent encounter during an admission to this facility in March 2019. She reports that her first psychiatric contact was over 10 years ago when she saw a private psychatrist in [place] who diagnosed her with MDD and started her on Prozac. Reports that she has been the psychiatrist regularly since. She is currently seeing a psychiatrist at [facility] in [facility] and she is currently precribed Wellbutrin XL 450 mg/day and Effexor XR 75 mg/day. When seen by field underwriter on 04/06/19, she was continued on her psychotropic medications as prescribed. Denies previous psychiatric hospitalization or suicidal attempt. At present, reports feeling anxious Physical/Sexual Abuse/Trauma History: Denies history of emotional, physical or sexual abuse as well as DV relationship Additional Comment: Reports history of one previous arrest on charges of DWI Mental Status Exam - Mental Status Exam Alert and Oriented to: Time, Place, Person Cognitive Function: Fair Patient Appearance: Well Groomed Mood: Anxious Affect: Appropriate Patient Behavior: Cooperative Speech Pattern: Clear Voice Loudness: Normal Thought Process: Intact Hallucinations: Denies Suicidal Ideation: Denies Homicidal Ideation: Denies Insight/Judgement: Poor Sleep: Well Appetite: Good Muscle strength/Tone: Normal Gait/Station: Normal Psychiatric Findings - Problem List (Etta 1, 2,3) (1) MDD (major depressive disorder) Current Visit: No Status: Chronic (2) Alcohol-induced anxiety disorder Current Visit: Yes Status: Acute (3) Alcohol dependence with uncomplicated withdrawal Current Visit: Yes Status: Acute (4) History of seizure Current Visit: No Status: Resolved - Initial Treatment Plan Initial Treatment Plan: 1) Continue Wellbutrin XL 450 mg po daily and Effexor XR 75 mg po daily. 2) Continue inpatient detoxification
--- NOTE | 2019-08-27 09:23 | PN ---
S CIWA - CIWA Score Nausea/Vomitin Muscle Tremors: 4-Moderate,w/Arms Extend Anxiety: 3 Agitation: 1-Slight > Activity Paroxysmal Sweats: 2 Orientation: 1-Uncertain about Date (date of week) Tacttile Disturbances: 0-None Auditory Disturbances: 0-None Visual Disturbances: 0-None Headache: 2-Mild CIWA-Ar Total Score: 15 [facility] Progress Note (SOAP) Subjective: 39 years old female admitted on 08/26/19 for alcohol withdrawal sx management fell upon admission J[facility]ON 105 ER evaluation medically cleared returned to detox JASON 119 treating with ativan detox regimen left eye superior orbital echymosis denies pain denies vision alteration ate breakfast ambulating on hallway denies dizziness Ensure supplement Objective: 08/27/19 09:24 Vital Signs Temperature 98.1 F 08/27/19 06:35 Pulse Rate 85 08/27/19 06:35 Respiratory Rate 16 08/27/19 06:35 Blood Pressure 106/63 08/27/19 06:35 O2 Sat by Pulse Oximetry (%) 08/27/19 09:24 lab pending Assessment: 08/27/19 09:24 alcohol withdrawal Plan: ativan regimen
[2019-08-27 10:04] LABS: HEMATOCRIT 33.7 % (32.4-45.2); HEMOGLOBIN 11.1 GM/dL (10.7-15.3); MCH 29.4 pg (25.7-33.7); MCHC 32.9 g/dl (32.0-36.0); MEAN CELL VOLUME 89.5 fl (80-96); MEAN PLT VOLUME 8.6 fl (7.5-11.1); PLATELET COUNT 302 K/MM3 (134-434); RBC 3.77 M/mm3 (3.60-5.2); RDW 18.1 % (11.6-15.6); WHITE BLOOD COUNT 7.2 K/mm3 (4.0-10.0)
[2019-08-27 10:14] LABS: ALBUMIN 3.3 g/dl (3.4-5.0); BILIRUBIN,TOTAL 0.7 mg/dL (0.2-1); BLOOD UREA NITROGEN 15.8 mg/dL (7-18); CALCIUM 8.5 mg/dL (8.5-10.1); CREATININE 0.8 mg/dL (0.55-1.3); POTASSIUM 4.2 mmol/L (3.5-5.1); TOT PROT 6.1 g/dl (6.4-8.2)
[2019-08-27] MEDS: PRENATAL VITAMINS W/ FOLIC ACID TABLET (FP) PO SCH (10:22)
[2019-08-27] MEDS: VENLAFAXINE HCL 75 MG E.R. CAPSULES (FP) PO SCH (10:43)
[2019-08-27] MEDS: THIAMINE HCL 100 MG TABLET (FP) PO SCH (22:13)
[2019-08-28] MEDS: LORazepam 1 MG TABLET PO SCH ×4 (05:22→22:30)
--- NOTE | 2019-08-28 08:32 | PN ---
Teaching Attending Note Name of Resident: Shani Herr ATTENDING PHYSICIAN STATEMENT I saw and evaluated the patient. I reviewed the resident's note and discussed the case with the resident. I agree with the resident's findings and plan as documented. SUBJECTIVE: Agree with resident subjective findings. OBJECTIVE: Agree with resident objective findings. ASSESSMENT AND PLAN: Agree with plan for admission.
[2019-08-28] MEDS: PRENATAL VITAMINS W/ FOLIC ACID TABLET (FP) PO SCH (10:31)
[2019-08-28] MEDS: VENLAFAXINE HCL 75 MG E.R. CAPSULES (FP) PO SCH (10:31)
--- NOTE | 2019-08-28 11:35 | PN ---
S CIWA - CIWA Score Nausea/Vomitin-No Nausea/No Vomiting Muscle Tremors: 1-None Visible, but [place] Anxiety: 1-Mildly Anxious Agitation: 0-Normal Activity Paroxysmal Sweats: 2 Orientation: 0-Oriented Tacttile Disturbances: 1-Very Mild Itch/Numbness Auditory Disturbances: 0-None Visual Disturbances: 0-None Headache: 0-None Present CIWA-Ar Total Score: 5 [facility] Progress Note (SOAP) Subjective: interrupted sleep, sweats Objective: 08/28/19 11:32 Vital Signs Temperature 98.5 F 08/28/19 09:20 Pulse Rate 95 H 08/28/19 09:20 Respiratory Rate 18 08/28/19 09:20 Blood Pressure 98/66 08/28/19 09:20 O2 Sat by Pulse Oximetry (%) Laboratory Tests 08/27/19 08/27/19 08/27/19 08:00 08:00 08:00 WBC 7.2 RBC 3.77 Hgb 11.1 Hct 33.7 MCV 89.5 MCH 29.4 MCHC 32.9 RDW 18.1 H Plt Count 302 MPV 8.6 Sodium 138 Potassium 4.2 Chloride 105 Carbon Dioxide 29 Anion Gap 5 L BUN 15.8 Creatinine 0.8 Est GFR (CKD-EPI)AfAm 108.39 Est GFR (CKD-EPI)NonAf 93.52 Random Glucose 89 Calcium 8.5 Total Bilirubin 0.7 AST 20 ALT 23 Alkaline Phosphatase 68 Total Protein 6.1 L Albumin 3.3 L RPR Titer Nonreactive pt aox3 in nad ambulating well OS periorbital ecchymosis with edema , Perrl, eom intact Assessment: 08/28/19 11:34 withdrawal sx's periorbital edema Plan: cont. detox increase fluids rest
--- NOTE | 2019-08-28 11:38 | PN ---
[facility] Progress Note Note: patient would like to be evaluated for psychiatric medication,for reevaluation by psychiatrist
[2019-08-28] MEDS: THIAMINE HCL 100 MG TABLET (FP) PO SCH (22:29)
[2019-08-29] MEDS ORDERED: LORazepam 0.5 MG TABLET PO PRN
[2019-08-29] MEDS: LORazepam 0.5 MG TABLET PO SCH ×4 (06:26→22:23)
[2019-08-29] MEDS: VENLAFAXINE HCL 75 MG E.R. CAPSULES (FP) PO SCH (10:21)
[2019-08-29] MEDS: PRENATAL VITAMINS W/ FOLIC ACID TABLET (FP) PO SCH (10:21)
--- NOTE | 2019-08-29 13:01 | PN ---
[facility] CIWA - CIWA Score Nausea/Vomitin-No Nausea/No Vomiting Muscle Tremors: None Anxiety: 2 Agitation: 0-Normal Activity Paroxysmal Sweats: 2 Orientation: 0-Oriented Tacttile Disturbances: 0-None Auditory Disturbances: 0-None Visual Disturbances: 0-None Headache: 0-None Present CIWA-Ar Total Score: 4 BHS Progress Note (SOAP) Subjective: c/o mild withdrawal symptoms. Objective: 08/29/19 13:00 Vital Signs 08/29/19 08/29/19 06:18 09:21 Temperature 97.8 F 98.0 F Pulse Rate 76 86 Respiratory 18 16 Rate Blood Pressure 99/61 105/66 Laboratory Last Values WBC 7.2 K/mm3 (4.0-10.0) 08/27/19 08:00 RBC 3.77 M/mm3 (3.60-5.2) 08/27/19 08:00 Hgb 11.1 GM/dL (10.7-15.3) 08/27/19 08:00 Hct 33.7 % (32.4-45.2) 08/27/19 08:00 MCV 89.5 fl (80-96) 08/27/19 08:00 MCH 29.4 pg (25.7-33.7) 08/27/19 08:00 MCHC 32.9 g/dl (32.0-36.0) 08/27/19 08:00 RDW 18.1 % (11.6-15.6) H 08/27/19 08:00 Plt Count 302 K/MM3 (134-434) 08/27/19 08:00 MPV 8.6 fl (7.5-11.1) 08/27/19 08:00 Sodium 138 mmol/L (136-145) 08/27/19 08:00 Potassium 4.2 mmol/L (3.5-5.1) 08/27/19 08:00 Chloride 105 mmol/L (98-107) 08/27/19 08:00 Carbon Dioxide 29 mmol/L (21-32) 08/27/19 08:00 Anion Gap 5 MMOL/L (8-16) L 08/27/19 08:00 BUN 15.8 mg/dL (7-18) 08/27/19 08:00 Creatinine 0.8 mg/dL (0.55-1.3) 08/27/19 08:00 Est GFR (CKD-EPI)AfAm 108.39 08/27/19 08:00 Est GFR (CKD-EPI)NonAf 93.52 08/27/19 08:00 Random Glucose 89 mg/dL (74-106) 08/27/19 08:00 Calcium 8.5 mg/dL (8.5-10.1) 08/27/19 08:00 Total Bilirubin 0.7 mg/dL (0.2-1) 08/27/19 08:00 AST 20 U/L (15-37) 08/27/19 08:00 ALT 23 U/L (13-61) 08/27/19 08:00 Alkaline Phosphatase 68 U/L (45-117) 08/27/19 08:00 Total Protein 6.1 g/dl (6.4-8.2) L 08/27/19 08:00 Albumin 3.3 g/dl (3.4-5.0) L 08/27/19 08:00 RPR Titer Nonreactive (NONREACTIVE) 08/27/19 08:00 Labs noted. Assessment: 08/29/19 13:00 AOX3, in no acute respiratory distress. Full ROM, ambulating in the unit. Withdrawal symptoms. For d/c tomorrow. Plan: continue detox. D/C in AM.
[2019-08-29] MEDS: THIAMINE HCL 100 MG TABLET (FP) PO SCH (22:23)
[2019-08-30] MEDS ORDERED: LORazepam 0.5 MG TABLET PO ONE (05:00)
[2019-08-30 09:22] VITALS: BP 117/73; PULSE 100; TEMP 98.7
[2019-08-30] MEDS: PRENATAL VITAMINS W/ FOLIC ACID TABLET (FP) PO SCH (09:56)
[2019-08-30] MEDS: VENLAFAXINE HCL 75 MG E.R. CAPSULES (FP) PO SCH (09:56)
--- NOTE | 2019-08-30 10:55 | PN ---
S Progress Note Note: Psychiatric nurse practitioner note: Patient scheduled for discharge today from [facility] detox. A 14 day prescription of Wellbutrin 450 Xl + Effexor 75 XR was electronically sent to [facility], [place] [address].
--- NOTE | 2019-08-30 14:34 | DS ---
[facility] Detox Discharge Summary Admission Date: 08/26/19 Discharge Date: 08/30/19 - History Present History: Alcohol Dependence Additional Comments: 39 years old female admitted on 08/26/19 for alcohol withdrawal sx management treated with ativan detox regimen patient tolerated well alert oriented x 3 cardiac s1s2 regular rate rhythm respiratory clear lung bilaterally on auscultation extremities full range of motion left orbital echymosis denies denies alteration vision denies dizziness - Physical Exam Results Vital Signs: Vital Signs Temperature 98.7 F 08/30/19 09:22 Pulse Rate 100 H 08/30/19 09:22 Respiratory Rate 16 08/30/19 09:22 Blood Pressure 117/73 08/30/19 09:22 O2 Sat by Pulse Oximetry (%) Pertinent Admission Physical Exam Findings: alcohol withdrawal sx Laboratory Last Values WBC 7.2 K/mm3 (4.0-10.0) 08/27/19 08:00 RBC 3.77 M/mm3 (3.60-5.2) 08/27/19 08:00 Hgb 11.1 GM/dL (10.7-15.3) 08/27/19 08:00 Hct 33.7 % (32.4-45.2) 08/27/19 08:00 MCV 89.5 fl (80-96) 08/27/19 08:00 MCH 29.4 pg (25.7-33.7) 08/27/19 08:00 MCHC 32.9 g/dl (32.0-36.0) 08/27/19 08:00 RDW 18.1 % (11.6-15.6) H 08/27/19 08:00 Plt Count 302 K/MM3 (134-434) 08/27/19 08:00 MPV 8.6 fl (7.5-11.1) 08/27/19 08:00 Sodium 138 mmol/L (136-145) 08/27/19 08:00 Potassium 4.2 mmol/L (3.5-5.1) 08/27/19 08:00 Chloride 105 mmol/L (98-107) 08/27/19 08:00 Carbon Dioxide 29 mmol/L (21-32) 08/27/19 08:00 Anion Gap 5 MMOL/L (8-16) L 08/27/19 08:00 BUN 15.8 mg/dL (7-18) 08/27/19 08:00 Creatinine 0.8 mg/dL (0.55-1.3) 08/27/19 08:00 Est GFR (CKD-EPI)AfAm 108.39 08/27/19 08:00 Est GFR (CKD-EPI)NonAf 93.52 08/27/19 08:00 Random Glucose 89 mg/dL (74-106) 08/27/19 08:00 Calcium 8.5 mg/dL (8.5-10.1) 08/27/19 08:00 Total Bilirubin 0.7 mg/dL (0.2-1) 08/27/19 08:00 AST 20 U/L (15-37) 08/27/19 08:00 ALT 23 U/L (13-61) 08/27/19 08:00 Alkaline Phosphatase 68 U/L (45-117) 08/27/19 08:00 Total Protein 6.1 g/dl (6.4-8.2) L 08/27/19 08:00 Albumin 3.3 g/dl (3.4-5.0) L 08/27/19 08:00 RPR Titer Nonreactive (NONREACTIVE) 08/27/19 08:00 lab noted - Treatment Hospital Course: Detox Protocol Followed, Detoxed Safely, Responded well, Discharged Condition Good, Rehab Referral Accepted Patient has Accepted a Rehab Referral to: [facility] - Medication Discharge Medications: Ambulatory Orders Bupropion HCl [Bupropion Xl] 450 mg PO DAILY 04/01/19 Venlafaxine HCl ER [Effexor Xr -] 75 mg PO DAILY 04/01/19 Bupropion HCl [Wellbutrin Xl -] 450 mg PO DAILY #42 tab.sr.24h 08/30/19 Venlafaxine HCl ER [Effexor Xr -] 75 mg PO DAILY #14 cap.er.24h 08/30/19 - Diagnosis (1) Alcohol dependence with uncomplicated withdrawal Status: Acute (2) Substance induced mood disorder Status: Suspected - AMA Did Patient Leave Against Medical Advice: No CIWA Score - CIWA Score Nausea/Vomitin-No Nausea/No Vomiting Muscle Tremors: None Anxiety: 1-Mildly Anxious Agitation: 0-Normal Activity Paroxysmal Sweats: 1-Minimal Palms Moist Orientation: 0-Oriented Tacttile Disturbances: 0-None Auditory Disturbances: 0-None Visual Disturbances: 0-None Headache: 0-None Present CIWA-Ar Total Score: 2
== END 2019-08-30 11:03 | disposition home or self-care (01) | DRG 775 ==
LOC: YASAS 12:40 → Y3N 19:33
PROVIDERS: ADMIT Allergy & Immunology; ATTEND Allergy & Immunology
PROC: HZ2ZZZZ Detoxification Services for Substance Abuse Treatment (ICD-10-PCS; principal; 2019-08-26)
DX: F10.230 Alcohol dependence with withdrawal, uncomplicated (principal); F10.280 Alcohol dependence with alcohol-induced anxiety disorder; F19.24 Other psychoactive substance dependence with psychoactive substance-induced mood disorder; F32.9 Major depressive disorder, single episode, unspecified; H05.229 Edema of unspecified orbit; Z86.69 Personal history of other diseases of the nervous system and sense organs; Z59.0 Homelessness
CPT/HCPCS: 36415; 80053; 81025; 85027; 86593

== ENCOUNTER 2019-08-26 13:36 | Emergency (ER) | payer OTHER ==
[2019-08-26 13:59] VITALS: BP 114/76; PULSE 95; TEMP 98; BMI 20.3
--- NOTE | 2019-08-26 14:32 | PDOC ---
History of Present Illness - General Chief Complaint: Injury Stated Complaint: 2X HEAD INJURY,INTOX Time Seen by Provider: 08/26/19 14:21 History Source: Patient - History of Present Illness Initial Comments: 08/26/19 14:37 Patient is a 39 year old female with no significant PMH who presents from [facility] detox s/p witnessed fall. Pt was checking herself into rehab after relapsing from 3-months sobriety last night. Last alcoholic drink was 8am this morning. At [facility], she slipped on someone's vomit, fell backwards, and hit the back of her head on the concrete. Denies LOC. No symptoms prior to fall ( denies chest pain, SOB, palpitations, lightheadedness). After fall, pt was able to stand right up. No vision changes, dizziness, confusion. Denies neck pain or tenderness. Only complaint is mild headache on back of head where she hit. 08/26/19 14:38 Past History - Past Medical History Allergies/Adverse Reactions: Allergies Allergy/AdvReac Type Severity Reaction Status Date / Time amoxicillin Allergy Severe Verified 08/26/19 14:00 Home Medications: Ambulatory Orders Bupropion HCl [Bupropion Xl] 450 mg PO DAILY 04/01/19 Venlafaxine HCl ER [Effexor Xr -] 75 mg PO DAILY 04/01/19 Anemia: No Asthma: No Cancer: No Cardiac Disorders: No CVA: No COPD: No CHF: No Dementia: No Diabetes: No GI Disorders: No Disorders: No HTN: No Hypercholesterolemia: No Kidney Stones: No Liver Disease: No Psychiatric Problems: Yes (DEPERESSION) Seizures: Yes (Not on medication) Thyroid Disease: No - Surgical History Abdominal Surgery: No Appendectomy: No Cardiac Surgery: No Cholecystectomy: No Lung Surgery: No Neurologic Surgery: No Orthopedic Surgery: No - Reproductive History PID: No - Psycho Social/Smoking Cessation Hx Smoking History: Never smoked Have you smoked in the past 12 months: No Hx Alcohol Use: Yes Drug/Substance Use Hx: No Substance Use Type: Alcohol Hx Substance Use Treatment: No *Physical Exam - Vital Signs Last Vital Signs Temp Pulse Resp BP Pulse Ox 98 F 95 H 18 114/76 98 08/26/19 13:55 08/26/19 13:55 08/26/19 13:55 08/26/19 13:55 08/26/19 13:55 Medical Decision Making - Medical Decision Making 08/26/19 15:29 CT Head: no acute infarction, hemorrhage or fracture. Pt is sober. She is medically stable to be discharged back to [facility]. 08/26/19 15:33 Discharge - Discharge Information Clinical Impression/Diagnosis: Fall Qualifiers: Encounter type: initial encounter Qualified Code(s): W19.XXXA - Unspecified fall, initial encounter Condition: Stable Disposition: HOME - Admission No - Follow up/Referral - Patient Discharge Instructions Additional Instructions: You were evaluated in the ER for a fall. A CAT scan of your head did not show any fractures or bleeds. You are stable to be discharged back to [facility] to complete rehab. Please return to the ER if you experience subsequent falls, worsening headache, dizziness, confusion. - Post Discharge Activity
[2019-08-26] MEDS ORDERED: ACETAMINOPHEN 325 MG TABLET (FP) PO ONE (14:38)
[2019-08-26] MEDS ORDERED: ACETAMINOPHEN 325 MG TABLET (FP) ONE (14:41)
--- NOTE | 2019-08-26 15:17 | PDOC ---
Documentation entered by Velvet Johnson SCRIBE, acting as scribe for Mohan Waterman MD. Mohan Waterman MD: This documentation has been prepared by the Alex gongora Adrianna, SCRIBE, under my direction and personally reviewed by me in its entirety. I confirm that the documentation accurately reflects all work, treatment, procedures, and medical decision making performed by me. Attending Attestation - Resident Resident Name: Leyla Henriquez - ED Attending Attestation I have performed the following: I have examined & evaluated the patient, The case was reviewed & discussed with the resident, I agree w/resident's findings & plan, Exceptions are as noted - HPI HPI: The patient is a 39 year old female, with a significant PMH of EtOH abuse, who presents to the ED for evaluation s/p witnessed fall at [facility]. Patient slipped on someones vomit while at [facility], causing her to fall backwards and hit the back of her head on the concrete floor. She was able to ambulate after the fall. She endorses a mild headache while in the ED. Allergies: Amoxicillin Surgical History: None reported Social History: EtOH abuse (last drink was this morning). No tobacco, or illicit drug use - Physicial Exam PE: 08/26/19 15:13 Patient is awake and alert, well-nourished, in no distress Normocephalic, no obvious deformity, minimal soft tissue swelling to the right occipital area without bony crepitus Neck is supple, no midline tenderness, no deformity, full range of motion CTA RRR Pelvis is stable Cranial nerves II through XII grossly intact; motor is five 5 x 4 - Medical Decision Making 08/26/19 15:16 39-year-old female with history of EtOH abuse presents with evidence of closed head injury status post fall. Will obtain CT of head. No indication for cervical spine CT. Likely discharge.
== END 2019-08-26 15:32 | disposition short-term general hospital (02) ==
LOC: JER 13:36
DX: Z04.3 Encounter for examination and observation following other accident (principal); F10.10 Alcohol abuse, uncomplicated; W01.0XXA Fall on same level from slipping, tripping and stumbling without subsequent striking against object, initial encounter; Y93.9 Activity, unspecified; Y92.239 Unspecified place in hospital as the place of occurrence of the external cause; Z88.8 Allergy status to other drugs, medicaments and biological substances; F32.9 Major depressive disorder, single episode, unspecified; R56.9 Unspecified convulsions
CPT/HCPCS: 70450-TC; 84703; 99281-25

== ENCOUNTER 2020-04-12 16:54 | Inpatient (IN) | payer OTHER ==
--- NOTE | 2020-04-12 17:11 | BHS.RME ---
Substance Use & Tx History - Substance Use History Alcohol Frequency of use: Daily Substance route: Oral Date of Last Use: 04/12/20 - Last Treatment Date of last treatment: 02/26/2020 Where was last treatment: Detox Physical/Psych/Mental Status - Behavior General Behavior: Increased activity (restlessness, agitation) Eye Contact: Normal Other Behaviors: Mannerisms - Cooperativeness Cooperativeness: Cooperative - Thinking Thought Processes: Goal Directed Thought content: Future oriented - Physical Health Problems Is patient presently having any pain?: No Does patient presently have any injuries (include location): No Does patient currently have a fever: No Is patient : No CIWA Nausea/Vomitin Muscle Tremors: 6 Anxiety: 4-Mod. Anxious/Guarded Agitation: 4-Moderately Restless Paroxysmal Sweats: 1-Minimal Palms Moist Orientation: 0-Oriented Tacttile Disturbances: 0-None Auditory Disturbances: 0-None Visual Disturbances: 0-None Headache: 3-Moderate CIWA-Ar Total Score: 20 Treatment Recommendation - Level of Care Level of Care: Acute Medical (alcohol detoxification)
--- NOTE | 2020-04-12 17:47 | HP ---
CIWA Score Nausea/Vomitin Muscle Tremors: 6 Anxiety: 4-Mod. Anxious/Guarded Agitation: 4-Moderately Restless Paroxysmal Sweats: 1-Minimal Palms Moist Orientation: 0-Oriented Tacttile Disturbances: 0-None Auditory Disturbances: 0-None Visual Disturbances: 0-None Headache: 3-Moderate CIWA-Ar Total Score: 20 - Admission Criteria OASAS Guidelines: Admission for Medically Managed Detox: Requires at least one of the followin. CIWA greater than 12 2. Seizures within the past 24 hours 3. Delirium tremens within the past 24 hours 4. Hallucinations within the past 24 hours 5. Acute intervention needed for co occurring medical disorder 6. Acute intervention needed for co occurring psychiatric disorder 7. Severe withdrawal that cannot be handled at a lower level of care (continued vomiting, continued diarrhea, abnormal vital signs) requiring intravenous medication and/or fluids 8. Admitting History and Physical - Admission Chief Complaint: Patient is a 39 lyn old female with history of alcohol use disorder, anxiety, depression presents for detox. History of Present Illness: Patient is a 39 year old female with history of alcohol use disorder, anxiety, depression presents for detox. PMH: alcohol use disorder, (one withdrawal seizure 01/2019) PSH: denies Psych: anxiety, depression (Lamictal, Effexor, Wellbutrin) Social: custodial in [place] Legal: denies Last visit was 02/21 and completed 5 days detox from alcohol. - Substance Use History Alcohol Frequency of use: Daily Substance route: Oral Date of Last Use: 04/12/20 (Vodka- drinks 2 pints per day) last drink 04/12 approx 10:30AM. First drink at 23 years old. - Last Treatment Date of last treatment: 02/26/2020 Where was last treatment: Detox History Source: Patient Limitations to Obtaining History: No Limitations - Past Medical History ...LMP: 02/15/20 - Smoking History Smoking history: Never smoked Have you smoked in the past 12 months: No Aproximately how many cigarettes per day: 1 - Alcohol/Substance Use Hx Alcohol Use: Yes Admission ROS [facility] Allergies/Adverse Reactions: Allergies Allergy/AdvReac Type Severity Reaction Status Date / Time amoxicillin Allergy Severe Verified 02/22/20 13:31 Exam Limitations: No Limitations - Ebola screening Have you traveled outside of the country in the last 21 days: No Have you been sick,other than usual withdrawal symptoms: No Do you have a fever: No - Review of Systems Constitutional: No Symptoms Reported EENT: denies: Blurred Vision, Recent change in vision Respiratory: denies: Cough, Shortness of Breath Cardiac: denies: Chest Pain, Lightheadedness, Palpitations GI: denies: Nausea, Vomiting, Abdominal cramping : denies: Burning, Dysuria, Discharge Musculoskeletal: denies: Joint Pain, Muscle Pain Integumentary: denies: Rash Neuro: reports: Headache. denies: Numbness, Paresthesia Psychiatric: reports: Anxious Patient History - Patient Medical History Hx Anemia: No Hx Asthma: No Hx Chronic Obstructive Pulmonary Disease (COPD): No Hx Cancer: No Hx Cardiac Disorders: No Hx Congestive Heart Failure: No Hx Hypertension: No Hx Hypercholesterolemia: No Hx Pacemaker: No HX Cerebrovascular Accident: No Hx Seizures: Yes (Last 02/01) Hx Dementia: No Hx Diabetes: No Hx Gastrointestinal Disorders: No Hx Liver Disease: No Hx Genitourinary Disorders: No Hx Sexually Transmitted Disorders: No Hx Renal Disease (ESRD): No Hx Thyroid Disease: No Hx Human Immunodeficiency Virus (HIV): No Hx Hepatitis C: No Hx Depression: Yes Hx Suicide Attempt: No Hx Bipolar Disorder: No Hx Schizophrenia: No - Patient Surgical History Past Surgical History: No Hx Neurologic Surgery: No Hx Cataract Extraction: No Hx Cardiac Surgery: No Hx Lung Surgery: No Hx Breast Surgery: No Hx Breast Biopsy: No Hx Abdominal Surgery: No Hx Appendectomy: No Hx Cholecystectomy: No Hx Genitourinary Surgery: No Hx Section: No Hx Orthopedic Surgery: No Anesthesia Reaction: No - PPD History Date: 04/06/19 Results: tb gold neg - Reproductive History Last Menstrual Period: 02/15/20 - Smoking Cessation Smoking history: Never smoked Have you smoked in the past 12 months: No Aproximately how many cigarettes per day: 1 Hx Chewing Tobacco Use: No Initiated information on smoking cessation: Yes 'Breaking Loose' booklet given: 04/12/20 Admission Physical Exam BHS - Physical General Appearance: Yes: Mild Distress, Anxious HEENTM: Yes: EOMI, Normocephalic, ROBERTA Respiratory: Yes: Lungs Clear, Normal Breath Sounds, No Respiratory Distress, No Accessory Muscle Use Neck: Yes: Supple Cardiology: Yes: Regular Rhythm, Regular Rate, S1, S2 Abdominal: Yes: Normal Bowel Sounds, Non Tender, Flat, Soft Musculoskeletal: Yes: Within Normal Limits, full range of Motion Extremities: Yes: Within Normal Limits, Normal Range of Motion Neurological: Yes: appliance installer II-XII NML intact, Fully Oriented, Motor Strength 5/5 Cleared for Admission [facility] - Detox or Rehab [facility] Level of Care: Medically Managed Detox Regimen/Protocol: Librium Breathalyzer - Breathalyzer Breathalyzer: 0.169 Urine Drug Screen - Test Device Lot number: [id number] Expiration date: 04/19/22 - Control Is test valid?: Yes - Results Drug screen NEGATIVE: No Urine drug screen results: BZO-Benzodiazepines Inpatient Rehab Admission - Rehab Decision to Admit Inpatient rehab admission?: No
[2020-04-12] MEDS ORDERED: IBUPROFEN 400 MG TABLET (FP) PO PRN (17:51)
[2020-04-12] MEDS ORDERED: METHOCARBAMOL 500 MG TABLET PO PRN (17:51)
[2020-04-12] MEDS ORDERED: BISMUTH SUBSALICYLATE 524 MG/30 ML UD PO PRN (17:51)
[2020-04-12] MEDS ORDERED: MAGNESIUM HYDROX 2400MG/30ML ORAL SUSPENSION 30 ML CUP PO PRN (17:51)
[2020-04-12] MEDS ORDERED: NICOTINE POLACRILEX 2 MG GUM BUC PRN (17:51)
[2020-04-12] MEDS ORDERED: ACETAMINOPHEN 325 MG TABLET (FP) PO PRN ×2 (17:51)
[2020-04-12] MEDS ORDERED: MAG HYDROX/AL HYDROX/SIMETH 30 ML UNIT-DOSE CUP PO PRN (17:51)
[2020-04-12] MEDS ORDERED: chlordiazePOXIDE HCL 25 MG CAPSULE PO PRN (17:51)
[2020-04-12] MEDS ORDERED: MAGNESIUM CITRATE 300 ML BOTTLE PO PRN (17:51)
[2020-04-12] MEDS ORDERED: ONDANSETRON *ODT* 4 MG TABLET SL PRN (17:51)
[2020-04-12] MEDS ORDERED: MENTHOL/PHENOL 1 EACH UD MM PRN (17:51)
[2020-04-12] MEDS ORDERED: hydrOXYzine PAMOATE 25 MG CAPSULE (FP) PO SCH (18:00)
[2020-04-12 18:38] VITALS: BMI 22.6
--- NOTE | 2020-04-12 18:44 | PN ---
Teaching Attending Note Name of Resident: Alonso Albert ATTENDING PHYSICIAN STATEMENT I saw and evaluated the patient. I reviewed the resident's note and discussed the case with the resident. I agree with the resident's findings and plan as documented. SUBJECTIVE:39 y.o. female requesting detox from ETOH use, reports 2 pints/day , went to [facility] , given Librium in the ER . h/o withdrawal seizures and ICU admission, most recently January 2019 . OBJECTIVE: wnwd , tremulous , intoxicated . Vital Signs - 24 hr 04/12/20 18:32 Temperature 98.1 F Pulse Rate 100 H Respiratory 18 Rate Blood Pressure 115/72 ASSESSMENT AND PLAN: AUD - Librium detox .
[2020-04-12] MEDS ORDERED: chlordiazePOXIDE HCL 25 MG CAPSULE PO ONE (18:45)
[2020-04-12] MEDS: THIAMINE HCL 100 MG TABLET (FP) PO SCH (22:37)
[2020-04-12] MEDS: chlordiazePOXIDE HCL 25 MG CAPSULE PO SCH (22:37)
[2020-04-12] MEDS: MELATONIN 5 MG TABLETS PO SCH (22:39)
[2020-04-13] MEDS: chlordiazePOXIDE HCL 25 MG CAPSULE PO SCH ×4 (05:40→22:02)
[2020-04-13] MEDS: PRENATAL VITAMINS W/ FOLIC ACID TABLET (FP) PO SCH (10:06)
[2020-04-13] MEDS: NICOTINE 7 MG/24 HOURS TOPICAL PATCH TD SCH (10:06)
--- NOTE | 2020-04-13 11:04 | PN ---
S CIWA - CIWA Score Nausea/Vomitin-Mild Nausea/No Vomiting Muscle Tremors: 4-Moderate,w/Arms Extend Anxiety: 3 Agitation: 2 Paroxysmal Sweats: 1-Minimal Palms Moist Orientation: 0-Oriented Tacttile Disturbances: 1-Very Mild Itch/Numbness Auditory Disturbances: 0-None Visual Disturbances: 2-Mild Sensitivity Headache: 1-Very Mild CIWA-Ar Total Score: 15 BHS Progress Note (SOAP) Subjective: 39 years old female admitted on 04/12/20 for alcohol withdrawal sx management treating with librium detox regiment feeling tired ate breakfast and lunch in room showered bmi 22.7 ensure 120 ml po tid with meals Objective: 04/13/20 12:32 Vital Signs - 24 hr 04/12/20 04/12/20 04/12/20 18:32 19:04 19:28 Temperature 98.1 F 97.7 F Pulse Rate 100 H 101 H Respiratory 18 18 Rate Blood Pressure 115/72 120/84 O2 Sat by Pulse 97 100 Oximetry (%) 04/12/20 04/13/20 04/13/20 20:43 05:56 08:43 Temperature 97.8 F 97.4 F L 97.1 F L Pulse Rate 94 H 67 64 Respiratory 18 18 18 Rate Blood Pressure 116/74 99/57 L 103/58 L O2 Sat by Pulse 98 99 Oximetry (%) Laboratory Tests 04/12/20 04/13/20 04/13/20 17:35 08:00 08:00 WBC 5.3 RBC 3.31 L Hgb 10.1 L Hct 30.7 L MCV 92.8 MCH 30.5 MCHC 32.9 RDW 16.5 H Plt Count 196 D MPV 10.0 D Sodium Potassium Chloride Carbon Dioxide Anion Gap BUN Creatinine Est GFR (CKD-EPI)AfAm Est GFR (CKD-EPI)NonAf Random Glucose Calcium Total Bilirubin AST ALT Alkaline Phosphatase Total Protein Albumin POC Urine HCG, Qual Negative Syphilis Serology Non-reactive 04/13/20 08:00 WBC RBC Hgb Hct MCV MCH MCHC RDW Plt Count MPV Sodium 141 Potassium 3.9 Chloride 108 H Carbon Dioxide 26 Anion Gap 7 L BUN 9.4 Creatinine 0.8 Est GFR (CKD-EPI)AfAm 108.39 Est GFR (CKD-EPI)NonAf 93.52 Random Glucose 82 Calcium 8.2 L Total Bilirubin 0.5 AST 38 H ALT 29 Alkaline Phosphatase 56 Total Protein 5.6 L Albumin 3.1 L POC Urine HCG, Qual Syphilis Serology lab noted Assessment: 04/13/20 12:32 alcohol withdrawal Plan: librium regiment
[2020-04-13 11:19] LABS: HEMATOCRIT 30.7 % (32.4-45.2); HEMOGLOBIN 10.1 GM/dL (10.7-15.3); MCH 30.5 pg (25.7-33.7); MCHC 32.9 g/dl (32.0-36.0); MEAN CELL VOLUME 92.8 fl (80-96); PLATELET COUNT 196 K/MM3 (134-434); RBC 3.31 M/mm3 (3.60-5.2); RDW 16.5 % (11.6-15.6); WHITE BLOOD COUNT 5.3 K/mm3 (4.0-10.0)
[2020-04-13 11:20] LABS: ALBUMIN 3.1 g/dl (3.4-5.0); BILIRUBIN,TOTAL 0.5 mg/dL (0.2-1); BLOOD UREA NITROGEN 9.4 mg/dL (7-18); CALCIUM 8.2 mg/dL (8.5-10.1); CREATININE 0.8 mg/dL (0.55-1.3); POTASSIUM 3.9 mmol/L (3.5-5.1); TOT PROT 5.6 g/dl (6.4-8.2)
--- NOTE | 2020-04-13 13:45 | CONSULT ---
[facility] Psychiatric Consult - Data Date of interview: 04/13/20 Admission source: [facility] Identifying data: Revisit to [facility] and admission to [address] [place] [address] for this 39 y/o female self-referred for detoxification treatment. ADE issue : alcohol dependence. Patient is single, no dependents, homeless, unemployed and supported on welfare. Substance Abuse History: Discussed with the patient. ADE profile as follows : Alcohol. Frequency of use: Daily. Substance route: Oral. Date of Last Use: 04/12/20 (Vodka- drinks 2 pints per day) last drink 04/12 approx 10:30AM. First drink at 23 years old. Last Treatment. Date of last treatment: 02/26/2020. Where was last treatment: Detox. History Source: Patient. Limitations to Obtaining History: No Limitations. Smoking History. Smoking history: Never smoked. History of multiple relapses. Medical History: Medical history is remarkable for antecedent of withdrawal- related seizures (one episode). Patient endorses good general health. Psychiatric History: Patient denies history of psychiatric hospitalizations. Diagnosed with MDD approximately 10 years ago (treated with prozac). As per records ([facility]), the patient is known to Dr Rodriguez ([facility] in the [place]) who prescribed her wellbutrin XL 300 mg/day + effexor XR 75 mg/day + lamictal 150 mg/day. Ms virgen states that she is currently seeing Dr Grimm at the [facility] in [place], [place]. Patient denies history of suicide attempts. Physical/Sexual Abuse/Trauma History: Patient denies history of abuse. Additional Comment: Urine drug screen results: BZO-Benzodiazepines Mental Status Exam - Mental Status Exam Alert and Oriented to: Time, Place, Person Cognitive Function: Good Patient Appearance: Well Groomed Mood: Withdrawn Affect: Appropriate, Normal Range Patient Behavior: Fatigued, Appropriate, Cooperative Speech Pattern: Clear, Appropriate Voice Loudness: Normal Thought Process: Intact, Goal Oriented Thought Disorder: Not Present Hallucinations: Denies Suicidal Ideation: Denies Homicidal Ideation: Denies Insight/Judgement: Poor Sleep: Poorly, Difficulty falling asleep Appetite: Good Gait/Station: Normal Psychiatric Findings - Problem List ([place] 1, 2,3) (1) Alcohol dependence with uncomplicated withdrawal Current Visit: Yes Status: Acute (2) Nicotine dependence Current Visit: Yes Status: Chronic Qualifiers: Nicotine product type: cigarettes (3) Substance induced mood disorder Current Visit: Yes Status: Chronic (4) MDD (major depressive disorder) Current Visit: Yes Status: Chronic (5) Insomnia Current Visit: Yes Status: Chronic - Initial Treatment Plan Initial Treatment Plan: Psychoeducation. Sleep hygiene. Detoxification. Motivational counseling. Resumed, at patient's request : wellbutrin XL 300 mg po daily + effexor XL 75 mg po daily + lamotrigine 150 mg po daily. Side effects/benefits of these medications are discussed with the patient. She grants consent (verbal) to MD. Landaverde.
[2020-04-13] MEDS: THIAMINE HCL 100 MG TABLET (FP) PO SCH (22:02)
[2020-04-13] MEDS: MELATONIN 5 MG TABLETS PO SCH (22:02)
[2020-04-14] MEDS: chlordiazePOXIDE HCL 25 MG CAPSULE PO SCH ×4 (05:40→22:09)
[2020-04-14] MEDS: PRENATAL VITAMINS W/ FOLIC ACID TABLET (FP) PO SCH (10:11)
[2020-04-14] MEDS: VENLAFAXINE HCL 75 MG E.R. CAPSULES PO SCH (10:11)
[2020-04-14] MEDS: NICOTINE 7 MG/24 HOURS TOPICAL PATCH TD SCH (10:12)
--- NOTE | 2020-04-14 10:24 | PN ---
S CIWA - CIWA Score Nausea/Vomitin-No Nausea/No Vomiting Muscle Tremors: 2 Anxiety: 2 Agitation: 1-Slight > Activity Paroxysmal Sweats: 1-Minimal Palms Moist Orientation: 0-Oriented Tacttile Disturbances: 0-None Auditory Disturbances: 0-None Visual Disturbances: 2-Mild Sensitivity Headache: 2-Mild CIWA-Ar Total Score: 10 S Progress Note (SOAP) Subjective: 39 years old female admitted on 04/12/20 for alcohol withdrawal sx management treating with librium detox regiment seen by psychiatrist resume wellbutrin effexor and lomotrigen feeling better today good eye contact ate 60% breakfast Objective: 04/14/20 10:25 Vital Signs - 24 hr 04/13/20 04/13/20 04/13/20 12:46 16:28 20:32 Temperature 97.5 F L 97.3 F L 97.5 F L Pulse Rate 68 59 L 72 Respiratory 18 18 18 Rate Blood Pressure 101/53 L 100/70 108/71 O2 Sat by Pulse 97 99 Oximetry (%) 04/14/20 04/14/20 06:39 09:24 Temperature 97.2 F L 98.2 F Pulse Rate 73 70 Respiratory 16 18 Rate Blood Pressure 100/51 L 96/60 O2 Sat by Pulse 99 99 Oximetry (%) Laboratory Tests 04/12/20 04/12/20 04/13/20 17:35 18:40 08:00 WBC RBC Hgb Hct MCV MCH MCHC RDW Plt Count MPV Sodium Potassium Chloride Carbon Dioxide Anion Gap BUN Creatinine Est GFR (CKD-EPI)AfAm Est GFR (CKD-EPI)NonAf Random Glucose Calcium Total Bilirubin AST ALT Alkaline Phosphatase Total Protein Albumin POC Urine HCG, Qual Negative Syphilis Serology Non-reactive COVID-19 (JENNIFER) Not detected 04/13/20 04/13/20 08:00 08:00 WBC 5.3 RBC 3.31 L Hgb 10.1 L Hct 30.7 L MCV 92.8 MCH 30.5 MCHC 32.9 RDW 16.5 H Plt Count 196 D MPV 10.0 D Sodium 141 Potassium 3.9 Chloride 108 H Carbon Dioxide 26 Anion Gap 7 L BUN 9.4 Creatinine 0.8 Est GFR (CKD-EPI)AfAm 108.39 Est GFR (CKD-EPI)NonAf 93.52 Random Glucose 82 Calcium 8.2 L Total Bilirubin 0.5 AST 38 H ALT 29 Alkaline Phosphatase 56 Total Protein 5.6 L Albumin 3.1 L POC Urine HCG, Qual Syphilis Serology COVID-19 (JENNIFER) lab noted Assessment: 04/14/20 10:26 alcohol withdrawal Plan: librium regiment
[2020-04-14] MEDS ORDERED: MASKS NR ONE (12:27)
[2020-04-14] MEDS: hydrOXYzine PAMOATE 25 MG CAPSULE (FP) PO PRN ×3 (13:45→22:10)
[2020-04-14] MEDS: THIAMINE HCL 100 MG TABLET (FP) PO SCH (22:08)
[2020-04-14] MEDS: MELATONIN 5 MG TABLETS PO SCH (22:09)
[2020-04-15] MEDS ORDERED: chlordiazePOXIDE HCL 10 MG CAPSULE PO PRN
[2020-04-15] MEDS: chlordiazePOXIDE HCL 10 MG CAPSULE PO SCH ×2 (05:36→10:09)
[2020-04-15 09:01] VITALS: BP 118/77; PULSE 97; TEMP 97.4
[2020-04-15] MEDS: VENLAFAXINE HCL 75 MG E.R. CAPSULES PO SCH (09:35)
[2020-04-15] MEDS: PRENATAL VITAMINS W/ FOLIC ACID TABLET (FP) PO SCH (09:37)
[2020-04-15] MEDS: NICOTINE 7 MG/24 HOURS TOPICAL PATCH TD SCH (09:37)
--- NOTE | 2020-04-15 10:44 | DS ---
[facility] Detox Discharge Summary Admission Date: 04/12/20 Discharge Date: 04/15/20 - History Present History: Alcohol Dependence Pertinent Past History: Ms. Donald is a 39 yo woman who was admitted on 04/12 for detox with a hx of alcohol use disorder. She will be discharged today with plans to go to [facility] for inpatient rehab. She plans to resume Vivitrol injections. Transportation has been arranged with [employer]. Pt voices understanding of the importance of following up with rehab plans. Laboratory Tests 04/12/20 04/12/20 04/13/20 17:35 18:40 08:00 WBC RBC Hgb Hct MCV MCH MCHC RDW Plt Count MPV Sodium Potassium Chloride Carbon Dioxide Anion Gap BUN Creatinine Est GFR (CKD-EPI)AfAm Est GFR (CKD-EPI)NonAf Random Glucose Calcium Total Bilirubin AST ALT Alkaline Phosphatase Total Protein Albumin POC Urine HCG, Qual Negative Syphilis Serology Non-reactive COVID-19 (JENNIFER) Not detected 04/13/20 04/13/20 08:00 08:00 WBC 5.3 RBC 3.31 L Hgb 10.1 L Hct 30.7 L MCV 92.8 MCH 30.5 MCHC 32.9 RDW 16.5 H Plt Count 196 D MPV 10.0 D Sodium 141 Potassium 3.9 Chloride 108 H Carbon Dioxide 26 Anion Gap 7 L BUN 9.4 Creatinine 0.8 Est GFR (CKD-EPI)AfAm 108.39 Est GFR (CKD-EPI)NonAf 93.52 Random Glucose 82 Calcium 8.2 L Total Bilirubin 0.5 AST 38 H ALT 29 Alkaline Phosphatase 56 Total Protein 5.6 L Albumin 3.1 L POC Urine HCG, Qual Syphilis Serology COVID-19 (JENNIFER) Home Medication List Medication Instructions Recorded Confirmed Type Lamotrigine [Lamictal] 150 mg PO DAILY 02/16/20 04/12/20 History Bupropion HCl [Wellbutrin Xl -] 300 mg PO DAILY 03/01/20 04/12/20 History Active Medications Generic Name Dose Route Start Last Admin Trade Name Freq PRN Reason Stop Dose Admin Acetaminophen 650 mg 04/12/20 17:51 Tylenol - PO Q6H PRN PAIN LEVEL 4 - 6 Acetaminophen 650 mg 04/12/20 17:51 Tylenol - PO Q6H PRN FEVER Al Hydroxide/Mg Hydroxide 30 ml 04/12/20 17:51 Mylanta Oral Suspension - PO Q6H PRN DYSPEPSIA Bismuth Subsalicylate 524 mg 04/12/20 17:51 Pepto-Bismol - PO Q1H PRN DIARRHEA Bupropion HCl 300 mg 04/14/20 10:00 04/15/20 09:35 Wellbutrin Xl - PO 300 mg DAILY HANNAH Administration Chlordiazepoxide HCl 10 mg 04/15/20 05:00 04/15/20 10:09 Librium - PO 04/15/20 23:01 10 mg [id number] HANNAH Administration Chlordiazepoxide HCl 10 mg 04/16/20 05:00 Librium - PO 04/16/20 17:01 Q12H HANNAH Chlordiazepoxide HCl 10 mg 04/15/20 00:00 Librium - PO 04/16/20 00:00 Q4H PRN WITHDRAWAL(CONT SUBST) Chlordiazepoxide HCl 10 mg 04/17/20 05:00 Librium - PO 04/17/20 05:01 ONCE@0500 ONE Eucalyptus/Menthol/Phenol/Sorbitol 1 each 04/12/20 17:51 Cepastat Lozenge - MM 04/18/20 17:51 Q4H PRN SORE THROAT Hydroxyzine Pamoate 25 mg 04/12/20 18:44 04/14/20 22:10 Vistaril - PO 04/18/20 17:51 25 mg Q4H PRN Administration ANXIETY Ibuprofen 400 mg 04/12/20 17:51 Motrin - PO Q6H PRN PAIN LEVEL 1 - 3 Magnesium Citrate 300 ml 04/12/20 17:51 Citroma - PO Q48H PRN CONSTIPATION Magnesium Hydroxide 30 ml 04/12/20 17:51 Milk Of Magnesia - PO PRN PRN CONSTIPATION Melatonin 5 mg 04/12/20 22:00 04/14/20 22:09 Melatonin PO 5 mg HS HANNAH Administration Methocarbamol 500 mg 04/12/20 17:51 Robaxin - PO 04/18/20 17:51 Q6H PRN MUSCLE SPASMS Nicotine 7 mg 04/13/20 10:00 04/15/20 09:37 Nicoderm Patch - TD Not Given DAILY HANNAH Nicotine Polacrilex 2 mg 04/12/20 17:51 Nicorette Gum - BUC Q2H PRN NICOTINE REPLACEMENT RX Ondansetron HCl 4 mg 04/12/20 17:51 Zofran Odt - SL 04/18/20 17:52 Q8H PRN Nausea/Vomiting Multivit/Folic Acid/Iron 1 tab 04/13/20 10:00 04/15/20 09:37 Vitamins (Sjr) - PO 1 tab DAILY HANNAH Administration Thiamine HCl 100 mg 04/12/20 22:00 04/14/20 22:08 Vitamin B1 - PO 100 mg HS HANNAH Administration Venlafaxine HCl 75 mg 04/14/20 10:00 04/15/20 09:35 Effexor Xr - PO 75 mg DAILY HANNAH Administration Vital Signs - 24 hr 04/14/20 04/14/20 04/14/20 12:30 15:39 20:33 Temperature 97.5 F L 97.1 F L 97.5 F L Pulse Rate 118 H 70 68 Respiratory 18 16 18 Rate Blood Pressure 130/93 105/70 117/79 O2 Sat by Pulse 99 99 100 Oximetry (%) 04/15/20 04/15/20 06:35 08:40 Temperature 97.3 F L 97.4 F L Pulse Rate 68 97 H Respiratory 18 18 Rate Blood Pressure 99/51 L 118/77 O2 Sat by Pulse 100 100 Oximetry (%) - Physical Exam Results Vital Signs: Vital Signs Temperature 97.4 F L 04/15/20 08:40 Pulse Rate 97 H 04/15/20 08:40 Respiratory Rate 18 04/15/20 08:40 Blood Pressure 118/77 04/15/20 08:40 O2 Sat by Pulse Oximetry (%) 100 04/15/20 08:40 - Treatment Hospital Course: Detox Protocol Followed, Detoxed Safely, Responded well, Discharged Condition Good, Rehab Referral Accepted Patient has Accepted a Rehab Referral to: [facility] inpatient Rehab - Medication Discharge Medications: Ambulatory Orders Venlafaxine HCl ER [Effexor Xr -] 75 mg PO DAILY #14 cap.er.24h 08/30/19 Lamotrigine [Lamictal] 150 mg PO DAILY 02/16/20 Bupropion HCl [Wellbutrin Xl -] 300 mg PO DAILY 03/01/20 - AMA Did Patient Leave Against Medical Advice: No
[2020-04-16] MEDS ORDERED: chlordiazePOXIDE HCL 10 MG CAPSULE PO SCH (05:00)
[2020-04-17] MEDS ORDERED: chlordiazePOXIDE HCL 10 MG CAPSULE PO ONE (05:00)
== END 2020-04-15 10:10 | disposition home or self-care (01) | DRG 775 ==
LOC: YASAS 16:54 → Y3N 18:25
PROVIDERS: ADMIT Allergy & Immunology; ATTEND Allergy & Immunology
PROC: HZ2ZZZZ Detoxification Services for Substance Abuse Treatment (ICD-10-PCS; principal; 2020-04-12)
DX: F10.230 Alcohol dependence with withdrawal, uncomplicated (principal); F17.210 Nicotine dependence, cigarettes, uncomplicated; F19.24 Other psychoactive substance dependence with psychoactive substance-induced mood disorder; F33.9 Major depressive disorder, recurrent, unspecified; G47.00 Insomnia, unspecified; Z88.1 Allergy status to other antibiotic agents; Z86.69 Personal history of other diseases of the nervous system and sense organs
CPT/HCPCS: 36415; 80053; 81025; 85027; 86780; U0003

== ENCOUNTER 2021-09-10 11:48 | Inpatient (IN) | payer OTHER ==
[2021-09-10 12:51] VITALS: BMI 27.4
[2021-09-10] MEDS ORDERED: diazePAM 5 MG TABLET PO SCH (17:00)
[2021-09-10] MEDS ORDERED: MAGNESIUM HYDROX 2400MG/30ML ORAL SUSPENSION 30 ML CUP PO PRN (17:07)
[2021-09-10] MEDS ORDERED: guaiFENesin 200 MG/10 ML 10 ML UNIT-DOSE CUPS PO PRN (17:07)
[2021-09-10] MEDS ORDERED: IBUPROFEN 400 MG TABLET (FP) PO PRN ×2 (17:07)
[2021-09-10] MEDS ORDERED: BISMUTH SUBSALICYLATE 524 MG/30 ML PO PRN (17:07)
[2021-09-10] MEDS ORDERED: DICYCLOMINE HCL 10 MG CAPSULE PO PRN (17:07)
[2021-09-10] MEDS ORDERED: NICOTINE POLACRILEX 2 MG GUM BUC PRN (17:07)
[2021-09-10] MEDS ORDERED: MAG HYDROX/AL HYDROX/SIMETH 30 ML UNIT-DOSE CUP PO PRN (17:07)
[2021-09-10] MEDS ORDERED: diazePAM 5 MG TABLET PO PRN (17:07)
[2021-09-10] MEDS ORDERED: ACETAMINOPHEN 325 MG TABLET (FP) PO PRN ×2 (17:07)
[2021-09-10] MEDS ORDERED: P-EPHED 60MG/TRIPROLIDI 2.5MG TABLET PO PRN (17:07)
[2021-09-10] MEDS ORDERED: METHOCARBAMOL 500 MG TABLET PO PRN (17:07)
[2021-09-10] MEDS ORDERED: ONDANSETRON *ODT* 4 MG TABLET SL PRN (17:07)
[2021-09-10] MEDS ORDERED: MENTHOL/PHENOL 1 EACH UD MM PRN (17:07)
[2021-09-10] MEDS ORDERED: MAGNESIUM CITRATE 300 ML BOTTLE PO PRN (17:07)
[2021-09-10] MEDS ORDERED: chlordiazePOXIDE HCL 25 MG CAPSULE PO PRN (17:54)
[2021-09-10] MEDS: hydrOXYzine PAMOATE 25 MG CAPSULE (FP) PO PRN (20:13)
[2021-09-10] MEDS: chlordiazePOXIDE HCL 25 MG CAPSULE PO SCH ×2 (20:14→22:30)
[2021-09-10] MEDS: THIAMINE HCL 100 MG TABLET (FP) PO SCH (22:30)
[2021-09-10] MEDS: MELATONIN 5 MG TABLETS PO SCH (22:30)
[2021-09-11] MEDS: chlordiazePOXIDE HCL 25 MG CAPSULE PO SCH ×4 (06:07→22:41)
[2021-09-11] MEDS: PRENATAL VITAMINS W/ FOLIC ACID TABLET (FP) PO SCH (10:25)
[2021-09-11 10:36] LABS: HEMATOCRIT 34.7 % (32.4-45.2); HEMOGLOBIN 11.3 GM/dL (10.7-15.3); MCH 30.8 pg (25.7-33.7); MCHC 32.4 g/dl (32.0-36.0); MEAN PLT VOLUME 9.3 fl (7.5-11.1); PLATELET COUNT 265 10^3/uL (134-434); RBC 3.66 M/mm3 (3.60-5.2); RDW 17.8 % (11.6-15.6); WHITE BLOOD COUNT 5.9 K/mm3 (4.0-10.0)
[2021-09-11 10:54] LABS: ALBUMIN 3.4 g/dl (3.4-5.0); CALCIUM 9.2 mg/dL (8.5-10.1)
[2021-09-11 10:55] LABS: BLOOD UREA NITROGEN 16.5 mg/dL (7-18)
[2021-09-11 10:58] LABS: CREATININE 0.9 mg/dL (0.55-1.3)
[2021-09-11 10:59] LABS: BILIRUBIN,TOTAL 0.7 mg/dL (0.2-1); TOT PROT 6.7 g/dl (6.4-8.2)
[2021-09-11] MEDS: MELATONIN 5 MG TABLETS PO SCH (22:41)
[2021-09-11] MEDS: THIAMINE HCL 100 MG TABLET (FP) PO SCH (22:41)
[2021-09-11] MEDS: hydrOXYzine PAMOATE 25 MG CAPSULE (FP) PO PRN (22:42)
[2021-09-12] MEDS ORDERED: diazePAM 5 MG TABLET PO SCH (06:00)
[2021-09-12] MEDS: chlordiazePOXIDE HCL 25 MG CAPSULE PO SCH ×4 (06:26→22:12)
[2021-09-12] MEDS: PRENATAL VITAMINS W/ FOLIC ACID TABLET (FP) PO SCH (10:19)
[2021-09-12] MEDS: VENLAFAXINE HCL 75 MG E.R. CAPSULES PO SCH (11:37)
[2021-09-12] MEDS ORDERED: FLUCONAZOLE 50 MG TABLET PO ONE (12:13)
[2021-09-12] MEDS: THIAMINE HCL 100 MG TABLET (FP) PO SCH (21:37)
[2021-09-12] MEDS: MELATONIN 5 MG TABLETS PO SCH (21:37)
[2021-09-13] MEDS ORDERED: chlordiazePOXIDE HCL 10 MG CAPSULE PO PRN
[2021-09-13] MEDS: chlordiazePOXIDE HCL 10 MG CAPSULE PO SCH ×4 (05:28→22:02)
[2021-09-13] MEDS ORDERED: diazePAM 5 MG TABLET PO SCH (06:00)
[2021-09-13] MEDS: PRENATAL VITAMINS W/ FOLIC ACID TABLET (FP) PO SCH (10:40)
[2021-09-13] MEDS: VENLAFAXINE HCL 75 MG E.R. CAPSULES PO SCH (10:40)
[2021-09-13] MEDS: hydrOXYzine PAMOATE 25 MG CAPSULE (FP) PO PRN ×2 (14:47→22:04)
[2021-09-13] MEDS: MELATONIN 5 MG TABLETS PO SCH (22:06)
[2021-09-13] MEDS: THIAMINE HCL 100 MG TABLET (FP) PO SCH (22:07)
[2021-09-14] MEDS ORDERED: chlordiazePOXIDE HCL 10 MG CAPSULE PO SCH (05:00)
[2021-09-14] MEDS ORDERED: diazePAM 5 MG TABLET PO ONE (06:00)
[2021-09-14 09:11] VITALS: BP 127/69; PULSE 88; TEMP 97.3
[2021-09-14] MEDS: VENLAFAXINE HCL 75 MG E.R. CAPSULES PO SCH (09:16)
[2021-09-14] MEDS: PRENATAL VITAMINS W/ FOLIC ACID TABLET (FP) PO SCH (09:16)
[2021-09-15] MEDS ORDERED: chlordiazePOXIDE HCL 10 MG CAPSULE PO ONE (05:00)
== END 2021-09-14 09:22 | disposition home or self-care (01) | DRG 775 ==
LOC: YASAS 11:48 → Y3N 18:19
PROVIDERS: ADMIT Allergy & Immunology; ATTEND Allergy & Immunology
PROC: HZ2ZZZZ Detoxification Services for Substance Abuse Treatment (ICD-10-PCS; principal; 2021-09-10)
DX: F10.230 Alcohol dependence with withdrawal, uncomplicated (principal); F17.210 Nicotine dependence, cigarettes, uncomplicated; F10.280 Alcohol dependence with alcohol-induced anxiety disorder; F10.24 Alcohol dependence with alcohol-induced mood disorder; F19.24 Other psychoactive substance dependence with psychoactive substance-induced mood disorder; F32.A Depression, unspecified; R25.3 Fasciculation; R73.9 Hyperglycemia, unspecified; Z86.69 Personal history of other diseases of the nervous system and sense organs; Z88.1 Allergy status to other antibiotic agents
CPT/HCPCS: 36415; 80053; 82947; 83036; 85027; 86780; 93005; 93010; C9803; U0003; U0005